=== PATIENT | female | born 2000 | race Asian ===

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

== ENCOUNTER 2020-04-30 10:53 | Outpatient (CLI) | payer MEDICAID ==
[2020-04-30 11:12] VITALS: BP 117/78
[2020-04-30] MEDS ORDERED: LACTATED RINGERS 1,000 ML IV ONE (12:20)
[2020-04-30 12:23] LABS: BILIRUBIN,URINE NEGATIVE (NEGATIVE); GLUCOSE, URINE (UA) NEGATIVE (NEGATIVE); KETONES,URINE (UA) NEGATIVE (NEGATIVE); LEUKOCYTE ESTERASE, URINE SMALL (NEGATIVE); NITRITE,URINE NEGATIVE (NEGATIVE); OCCULT BLOOD,URINE NEGATIVE (NEGATIVE); PH,URINE 7.5 PH (5.0-7.5); PROTEIN,URINE NEGATIVE (NEGATIVE); UROBILINOGEN,URINE 0.2 (NORMAL) E.U./dL (NORMAL)
--- NOTE | 2020-04-30 12:29 | PROVIDER PROGRESS NOTE ---
- HPI Chief Complaint: Labor Current : Current EDU 09/10/20 Gestation 21 Weeks and 0 Days 1 Para 0 Vital Signs Temperature 37.1 C 04/30/20 11:04 Heart Rate 114 H 04/30/20 11:04 Respiratory Rate 16 04/30/20 11:04 Blood Pressure 117/78 04/30/20 11:04 O2 Saturation 100 04/30/20 11:04 Temperature 37.1 C 04/30/20 11:04 Heart Rate 114 H 04/30/20 11:04 Respiratory Rate 16 04/30/20 11:04 Blood Pressure 117/78 04/30/20 11:04 O2 Saturation 100 04/30/20 11:04 - Procedures OB Procedure Performed: Other (transvag for cervical length) - Plan Plan: S: 20yo at 21.0 wks presents with lower abdominal pain and cramping since 1800 last night. She reports this as 6/10 and constant, with some cramping rhythms noted. No pain or burning with urination, no increase in frequency or urgency Reports decreased movement over pattern from last three weeks Reports increased white-watery discharge, denies foul odor or itching Denies nausea, headache, dizziness, blurred vision O: Abdomen, soft, gravid, nontender to palpation Lungs clear and equal bilaterally HR regular rate and rhythm, no murmur noted FHTs reported as 140-150 per bedside doppler TOCO shows uterine activity, mild, intermittent and irregular- possibly uterine irritability Awaiting transvag ultrasound UA collected-pending Affirm collected-pending A: 20yo at 21.0wks gestation with threatened labor P: Await results of UA, affirm, and transvag US to direct plan of care Start IV and admin 1 liter LR Continuous uterine monitoring
[2020-04-30 12:33] LABS: BACTERIA,URINE Few /HPF (None Seen); CLARITY,URINE CLEAR (CLEAR); RBC,URINE None Seen /HPF (0-5); SQUAMOUS EPITHELIAL CELL,UR MANY Squamous (<= Few)
[2020-04-30 14:17] LABS: BASOPHILS % (AUTO) 0.6 %; EOSINOPHILS # (AUTO) 0.1 10^3/uL (0.0-0.7); EOSINOPHILS % (AUTO) 0.7 %; HGB - HEMOGLOBIN 11.4 g/dL (12.0-16.0); LYMPHOCYTES # (AUTO) 1.4 10^3/uL (1.5-3.5); LYMPHOCYTES % (AUTO) 19.4 %; MEAN CORPUSCULAR HGB CONC 32.8 g/dL (32.0-36.0); MEAN CORPUSCULAR VOLUME 88.5 fL (81.0-99.0); MEAN PLATELET VOLUME 12.1 fL (7.9-10.8); MONOCYTES # (AUTO) 0.6 10^3/uL (0.0-1.0); MONOCYTES % (AUTO) 7.6 %; NEUTROPHILS # (AUTO) 5.1 10^3/uL (1.5-6.6); NEUTROPHILS % (AUTO) 70.7 %; PLT - PLATELET COUNT 139 10^3/uL (130-450); RED BLOOD COUNT 3.93 10^6/uL (4.20-5.40); RED CELL DISTRIBUTION WIDTH 12.5 % (12.0-15.0); WHITE BLOOD COUNT 7.2 x10^3/uL (4.8-10.8)
--- NOTE | 2020-04-30 15:23 | Ultrasound Report ---
PROCEDURE: Abdomen Limited INDICATIONS: RLQ abdominal pain TECHNIQUE: Real-time focused scanning was performed of the abdomen, with image documentation. COMPARISON: None FINDINGS: The appendix is visualized and measures 2 mm x 2 mm x 2.6 mm at the origin, mid and distal portions respectively. Wall thickness measures 0.5 mm x 0.6 mm x 0.6 mm at the origin, mid and dista l portions respectively. There is no echogenic fat or mural hyperemia. Compressibility is difficult t o assess, as appendix is not well seen in all views.. No appendicolith, free fluid or associated mark opathy. IMPRESSION: Partial visualization of the appendix without gross enlargement or secondary signs of inflammation. Reviewed by: Shannan Malin MD on 04/30/2020 3:19 PM PST Approved by: Shannan Malin MD on 04/30/2020 3:19 PM PST Station ID: [id number]
--- NOTE | 2020-04-30 15:26 | Ultrasound Report ---
PROCEDURE: OB Limited INDICATIONS: contractions OUTSIDE/PRIOR DATING DATA: Last menstrual period (LMP): Unknown. LMP-based estimated date of delivery (NIKKO): Unknown. First dating scan (date and location): 02/19/2020, [id number]. Estimated date of delivery (NIKKO) from first dating scan: 09/10/2020. TECHNIQUE: Real-time scanning was performed of the fetus, with image documentation. Endovaginal scanning: COMPARISON: None. FINDINGS: A single living intrauterine gestation is present. Presentation: Breech Placenta: Placental position is anterior, without previa. The placenta is low lying but is approxima tely 2 cm from the internal os. Amniotic fluid index: 13.6 cm. Largest pocket is 3.6 cm. heart rate: 140 beats per minutes. Maternal cervical canal: 5 cm long; normal length is 2.5 cm or more. Estimated gestational age by initial ultrasound: 21 weeks 0 days. IMPRESSION: Live intrauterine with an estimated gestational age of 21 weeks 0 days by init ial ultrasound without complication. Reviewed by: Diego Montes on 04/30/2020 3:25 PM PST Approved by: Diego Montes on 04/30/2020 3:25 PM PST Station ID: [id number]
[2020-04-30 16:03] LABS: ALBUMIN/GLOBULIN RATIO 0.9 (1.0-2.2); BILIRUBIN,TOTAL 0.5 mg/dL (0.2-1.0); CALCIUM 8.6 mg/dL (8.5-10.3); CREATININE 0.4 mg/dL (0.4-1.0); TOTAL PROTEIN 6.4 g/dL (6.7-8.2)
[2020-04-30 22:30] LABS: CANDIDA GROUP DNA NEGATIVE (NEGATIVE); CANDIDA KRUSEI DNA NEGATIVE (NEGATIVE); TRICHOMONAS VAGINALIS DNA NEGATIVE (NEGATIVE)
== END 2020-04-30 15:30 | disposition home or self-care (01) ==
LOC: WFO 10:53 → MERGE 10:53 → FBP 11:02 → WFO 15:30
PROVIDERS: ATTEND Advanced Practice Midwife
DX: O99.891 Other specified diseases and conditions complicating pregnancy (principal); K59.00 Constipation, unspecified; Z3A.21 21 weeks gestation of pregnancy
CPT/HCPCS: 76705; 76815; 80053; 81001; 85025; 87481; 87661; 87801; 99214; J7120; 87086

== ENCOUNTER 2020-05-04 07:40 | Outpatient (CLI) | payer MEDICAID ==
--- NOTE | 2020-05-04 15:42 | Ultrasound Report ---
PROCEDURE: OB Detailed Eval INDICATIONS: SUPERVISION OF NORMAL PREGANCY OUTSIDE/PRIOR DATING DATA: Last menstrual period (LMP): Unknown. LMP-based estimated date of delivery (NIKKO): Unknown. First dating scan (date and location): 02/19/2020. Estimated date of delivery (NIKKO) from first dating scan: 09/11/2019. TECHNIQUE: Real-time scanning was performed of the fetus, with image documentation and biometric measurements. COMPARISON: OB ultrasound 04/20/2020 FINDINGS: General: A single living intrauterine gestation is present. Presentation: Vertex Placenta: Placental position is anterior, with mild low-lying appearance. Amniotic fluid index: 13.8 cm, 42nd percentile for gestational age. Largest pocket 5.0 cm heart rate: 139 beats per minute. Maternal cervical canal: 4.5 cm long; normal length is 2.5 cm or more. biometrics: Biparietal diameter: 4.9 cm 20 weeks 5 days Head circumference: 19 cm 21 weeks 2 days Abdominal circumference: 17.3 cm 20 weeks 1 day Femur length: 3.6 cm 21 weeks 3 days Estimated gestational age from initial scan: 21 weeks 4 days Composite gestational age from present scan: 21 weeks 3 days Estimated weight and percentile: 446 g 53rd percentile Measurement variability in biometric dating: +/- 10 days from 12-20 weeks gestation, +/- 2 weeks from 20-30 weeks gestation, +/- 3 weeks at 30 weeks gestation or later. Anatomic survey: Neuro: Ventricles are normal at less than 10 mm. Cisterna magna is normal at 3-11 mm. Cerebellum i s normal in size and morphology. Nuchal skin fold: Normal at less than 6 mm between 14 and 20 weeks gestational age. Face: Nose and lips, facial profile are normal. Spine: No evidence for spina bifida. Heart: 4-chambered heart is present, with normal ventricular outflow tracts. Diaphragm: Diaphragm is intact. Stomach: Left-sided stomach is present. Kidneys: No hydronephrosis. Normal is less than 5 mm in 2nd trimester, less than 7 mm in 3rd trimester. Cord: 3 vessel cord has orthotopic insertion. Bladder: Normal in size. Extremities: All 4 extremities are visualized. IMPRESSION: 1. Single live intrauterine with ultrasound gestational age today of 21 weeks 3 days compar ed to 21 weeks 4 days from initial ultrasound. Ultrasound NIKKO is unchanged at 09/11/2019. 2. Anatomy is within normal limits. Reviewed by: Shannan Malin MD on 05/04/2020 3:40 PM PST Approved by: Shannan Malin MD on 05/04/2020 3:40 PM PST Station ID: [id number]
== END 2020-05-04 07:41 | disposition home or self-care (01) ==
LOC: DI 07:40
PROVIDERS: ATTEND Advanced Practice Midwife
DX: Z34.90 Encounter for supervision of normal pregnancy, unspecified, unspecified trimester (principal); Z36.89 Encounter for other specified antenatal screening
CPT/HCPCS: 76811

== ENCOUNTER 2020-05-25 11:34 | Outpatient (CLI) | payer MEDICAID | END 2020-05-25 11:35 | disposition home or self-care (01) | LOC: LAB 11:34 | PROVIDERS: ATTEND Nurse Practitioner Obstetrics & Gynecology | DX: O99.891 Other specified diseases and conditions complicating pregnancy (principal); R19.7 Diarrhea, unspecified; J45.909 Unspecified asthma, uncomplicated; Z20.828 Contact with and (suspected) exposure to other viral communicable diseases ==

== ENCOUNTER 2020-05-28 15:28 | Outpatient (CLI) | payer MEDICAID ==
[2020-05-28 16:43] LABS: BASOPHILS % (AUTO) 0.3 %; EOSINOPHILS # (AUTO) 0.1 10^3/uL (0.0-0.7); HGB - HEMOGLOBIN 10.4 g/dL (12.0-16.0); LYMPHOCYTES # (AUTO) 1.5 10^3/uL (1.5-3.5); LYMPHOCYTES % (AUTO) 20.6 %; MEAN CORPUSCULAR HEMOGLOBIN 28.6 pg (27.0-31.0); MEAN CORPUSCULAR HGB CONC 31.8 g/dL (32.0-36.0); MEAN CORPUSCULAR VOLUME 89.8 fL (81.0-99.0); MEAN PLATELET VOLUME 10.7 fL (7.9-10.8); MONOCYTES # (AUTO) 0.6 10^3/uL (0.0-1.0); MONOCYTES % (AUTO) 8.6 %; NEUTROPHILS % (AUTO) 68.3 %; PLT - PLATELET COUNT 150 10^3/uL (130-450); RED BLOOD COUNT 3.64 10^6/uL (4.20-5.40); RED CELL DISTRIBUTION WIDTH 12.5 % (12.0-15.0); WHITE BLOOD COUNT 7.3 x10^3/uL (4.8-10.8)
== END 2020-05-28 15:29 | disposition home or self-care (01) ==
LOC: LAB 15:28
PROVIDERS: ATTEND Advanced Practice Midwife
DX: Z36.89 Encounter for other specified antenatal screening (principal)
CPT/HCPCS: 36415; 82950; 85025

== ENCOUNTER 2020-06-16 07:01 | Outpatient (CLI) | payer MEDICAID | END 2020-06-16 07:02 | disposition home or self-care (01) | LOC: LAB 07:01 | PROVIDERS: ATTEND Nurse Practitioner Obstetrics & Gynecology | DX: O99.810 Abnormal glucose complicating pregnancy (principal) | CPT/HCPCS: 36415; 82951; 82952 ==

== ENCOUNTER 2020-06-21 08:00 | Outpatient (CLI) | payer MEDICAID ==
[2020-06-21 19:52] LABS: BACTERIAL VAGINOSIS DNA NEGATIVE (NEGATIVE); CANDIDA GLABRATA DNA NEGATIVE (NEGATIVE); CANDIDA GROUP DNA NEGATIVE (NEGATIVE); CANDIDA KRUSEI DNA NEGATIVE (NEGATIVE); TRICHOMONAS VAGINALIS DNA NEGATIVE (NEGATIVE)
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
== END 2020-06-21 23:59 ==
LOC: LAB.R 08:00
PROVIDERS: ATTEND Advanced Practice Midwife
DX: O23.599 Infection of other part of genital tract in pregnancy, unspecified trimester (principal); Z3A.00 Weeks of gestation of pregnancy not specified
CPT/HCPCS: 87661; 87801

== ENCOUNTER 2020-06-24 15:22 | Outpatient (CLI) | payer MEDICAID ==
--- NOTE | 2020-06-25 16:57 | Ultrasound Report ---
PROCEDURE: OB F/U or Repeat INDICATIONS: SUPERVISION OF NORMAL OUTSIDE/PRIOR DATING DATA: Last menstrual period (LMP): Not available. LMP-based estimated date of delivery (NIKKO): Not available. First dating scan (date and location): 02/19/2020. Estimated date of delivery (NIKKO) from first dating scan: 09/10/2020. TECHNIQUE: Real-time scanning was performed of the fetus, with image documentation and biometric measurements. Endovaginal scanning: Not needed COMPARISON: Prior OB ultrasound studies for this . FINDINGS: General: A single living intrauterine gestation is present. Presentation: Transverse head to the maternal left. Placenta: Placental position is anterior, without previa. Amniotic fluid index: 13.2 cm, normal for gestational age. heart rate: 155 beats per minute. Maternal cervical canal: 5.1 cm long; normal length is 2.5 cm or more. Other: Not applicable. IMPRESSION: Limited evaluation at clinician request to most accurately assess low-lying placental ap pearance. The placental tip is now 2.7 cm above the internal os of the cervical canal, normal in posi tioning. Viable intrauterine gestation with normal amniotic fluid volume is noted, and the delivery d ate is projected to be centered on 09/10/2020. Reviewed by: Alden Reilly MD on 06/25/2020 4:56 PM PST Approved by: Alden Reilly MD on 06/25/2020 4:56 PM PST Station ID: [id number]
== END 2020-06-24 15:23 | disposition home or self-care (01) ==
LOC: DI 15:22
PROVIDERS: ATTEND Advanced Practice Midwife
DX: Z34.92 Encounter for supervision of normal pregnancy, unspecified, second trimester (principal)

== ENCOUNTER 2020-06-30 15:28 | Outpatient (CLI) | payer MEDICAID ==
[2020-06-30 15:40] VITALS: BP 143/83
[2020-06-30 18:46] LABS: BILIRUBIN,URINE NEGATIVE (NEGATIVE); GLUCOSE, URINE (UA) NEGATIVE (NEGATIVE); KETONES,URINE (UA) NEGATIVE (NEGATIVE); LEUKOCYTE ESTERASE, URINE NEGATIVE (NEGATIVE); NITRITE,URINE NEGATIVE (NEGATIVE); OCCULT BLOOD,URINE NEGATIVE (NEGATIVE); PROTEIN,URINE NEGATIVE (NEGATIVE); UROBILINOGEN,URINE 0.2 (NORMAL) E.U./dL (NORMAL)
[2020-06-30 18:49] LABS: RUPTURE OF MEMBRANES PLUS NEGATIVE (NEGATIVE)
[2020-06-30 18:55] LABS: CLARITY,URINE CLEAR (CLEAR)
--- NOTE | 2020-06-30 19:04 | PROCEDURE REPORT ---
- HPI Diagnosis/Indication for NST: Other (leaking of fluid) Current EDU 09/10/20 Gestation 29 Weeks and 5 Days 1 Para 0 Vital Signs Temperature 99.1 F 06/30/20 15:39 Heart Rate 121 H 06/30/20 15:39 Respiratory Rate 18 06/30/20 15:39 Blood Pressure 143/83 H 06/30/20 15:39 O2 Saturation 98 06/30/20 15:39 Temperature 99.1 F 06/30/20 15:39 Heart Rate 121 H 06/30/20 15:39 Respiratory Rate 18 06/30/20 15:39 Blood Pressure 143/83 H 06/30/20 15:39 O2 Saturation 98 06/30/20 15:39 - Results and Plan Findings/Impression: Baseline: 145 BPM Variability: Moderate Accelerations: Present 10x10 Decelerations: Absent Trends in FHR over time: no changes [place] contractions in 10 minutes: neg Impression: reactive Category 1 NST S: patient c/o yellow creamy leaking of fluid from the vagina, feels like it is a lot, had eval last week by CNM without infection seen but worried because lots is still coming out. Not soaking through underwear. No VB. Good FM. Some sup rapubic cramping that can last for 30min at a time, is mild and intermittent. O: AVSS, alert NAD, EFG normal, vag pink and moist, opaque creamy yellow discharge present, cervix is closed visually and on SVE. Negative pooling, valsalva, nitrizine and ferning. ROM plus test was neg, wet mount normal, UA norml. A/P: Leukorrhea of . Reassured, PTL precautions given, f/u per routine in clinic.
[2020-06-30 22:12] LABS: TRICHOMONAS VAGINALIS DNA NEGATIVE (NEGATIVE)
== END 2020-06-30 18:43 | disposition home or self-care (01) ==
LOC: WFO 15:28 → FBP 15:29 → WFO 18:43
PROVIDERS: ATTEND Obstetrics & Gynecology
DX: O99.891 Other specified diseases and conditions complicating pregnancy (principal); N89.8 Other specified noninflammatory disorders of vagina; Z3A.29 29 weeks gestation of pregnancy
CPT/HCPCS: 81001; 81003; 84112; 87086; 87210; 87491; 87591; 87661; 99213

== ENCOUNTER 2020-07-09 08:00 | Outpatient (CLI) | payer MEDICAID | END 2020-07-09 23:59 | disposition home or self-care (01) | LOC: LAB.S 08:00 | PROVIDERS: ATTEND Physician Assistant Medical | DX: J34.89 Other specified disorders of nose and nasal sinuses (principal); Z20.822 Contact with and (suspected) exposure to COVID-19 ==

== ENCOUNTER 2020-07-10 19:46 | Outpatient (CLI) | payer MEDICAID ==
[2020-07-10 20:16] VITALS: BP 127/76
[2020-07-10 20:19] LABS: BILIRUBIN,URINE NEGATIVE (NEGATIVE); GLUCOSE, URINE (UA) NEGATIVE (NEGATIVE); KETONES,URINE (UA) NEGATIVE (NEGATIVE); LEUKOCYTE ESTERASE, URINE NEGATIVE (NEGATIVE); NITRITE,URINE NEGATIVE (NEGATIVE); OCCULT BLOOD,URINE NEGATIVE (NEGATIVE); PH,URINE 6.5 PH (5.0-7.5); PROTEIN,URINE NEGATIVE (NEGATIVE); UROBILINOGEN,URINE 0.2 (NORMAL) E.U./dL (NORMAL)
[2020-07-10 20:22] LABS: CLARITY,URINE CLEAR (CLEAR)
[2020-07-10 20:33] LABS: BACTERIA,URINE None Seen /HPF (None Seen); RBC,URINE 0-5 /HPF (0-5); SQUAMOUS EPITHELIAL CELL,UR FEW Squamous (<= Few)
[2020-07-10] MEDS ORDERED: SUCRALFATE 1 GM/10 ML UDC PO SCH (20:59)
--- NOTE | 2020-07-11 00:57 | PROVIDER PROGRESS NOTE ---
- HPI Chief Complaint: Labor (vs. round ligament pain) Current : Current EDU 09/10/20 Gestation 31 Weeks and 1 Days 1 Para 0 Vital Signs Heart Rate 115 H 07/10/20 20:15 Respiratory Rate 07/10/20 20:15 Blood Pressure 127/76 07/10/20 20:15 Temperature 97.3 C H 07/10/20 20:39 Heart Rate 115 H 07/10/20 20:15 Respiratory Rate 07/10/20 20:15 Blood Pressure 127/76 07/10/20 20:15 O2 Saturation - Procedures OB Procedure Performed: NST NST Procedure: NST Procedure Start Date 07/10/20 Start Time 20:03 Stop Time 21:16 Vibroacoustic Stimulation Used No Patient States Movement Yes - Plan Plan: S: Sidra presents for labor check. She reports cramping all day, but prolonged pain with lower pelvic discomfort noted for two hours prior to presenting. Right side worse than left. Denies VB or LOF Reports FM O: No contractions on monitor NST perform date 07/10/2020 NST read date 07/10/2020 FFN- neg UA- neg A: 20yo at 31.1 wks gestation presents for rule out labor FHT Cat I No uterine activity FFN reassuring P: Discharge to home with PTL precautions Continue with routine care Encouraged use of support belt and proper body mechanics Final Diagnosis: False Labor
== END 2020-07-10 21:30 | disposition home or self-care (01) ==
LOC: WFO 19:46 → FBP 19:47 → WFO 21:30
PROVIDERS: ATTEND Advanced Practice Midwife
DX: O47.03 False labor before 37 completed weeks of gestation, third trimester (principal); Z3A.31 31 weeks gestation of pregnancy
CPT/HCPCS: 59025; 81001; 82731; A9270; 87086

== ENCOUNTER 2020-07-13 15:36 | Outpatient (CLI) | payer MEDICAID ==
[2020-07-13 17:03] LABS: BILIRUBIN,URINE NEGATIVE (NEGATIVE); GLUCOSE, URINE (UA) NEGATIVE (NEGATIVE); KETONES,URINE (UA) NEGATIVE (NEGATIVE); LEUKOCYTE ESTERASE, URINE NEGATIVE (NEGATIVE); NITRITE,URINE NEGATIVE (NEGATIVE); OCCULT BLOOD,URINE NEGATIVE (NEGATIVE); PROTEIN,URINE NEGATIVE (NEGATIVE); UROBILINOGEN,URINE 0.2 (NORMAL) E.U./dL (NORMAL)
[2020-07-13 17:03] LABS: RUPTURE OF MEMBRANES PLUS NEGATIVE (NEGATIVE)
[2020-07-13 17:06] LABS: CLARITY,URINE CLEAR (CLEAR)
[2020-07-13 17:32] LABS: BACTERIA,URINE None Seen /HPF (None Seen); RBC,URINE None Seen /HPF (0-5); SQUAMOUS EPITHELIAL CELL,UR FEW Squamous (<= Few)
[2020-07-13 17:38] LABS: BASOPHILS % (AUTO) 0.4 %; EOSINOPHILS # (AUTO) 0.1 10^3/uL (0.0-0.7); EOSINOPHILS % (AUTO) 1.6 %; LYMPHOCYTES # (AUTO) 1.7 10^3/uL (1.5-3.5); LYMPHOCYTES % (AUTO) 23.2 %; MEAN CORPUSCULAR HEMOGLOBIN 29.1 pg (27.0-31.0); MEAN CORPUSCULAR HGB CONC 32.2 g/dL (32.0-36.0); MEAN CORPUSCULAR VOLUME 90.5 fL (81.0-99.0); MEAN PLATELET VOLUME 11.7 fL (7.9-10.8); MONOCYTES # (AUTO) 0.7 10^3/uL (0.0-1.0); MONOCYTES % (AUTO) 9.2 %; NEUTROPHILS # (AUTO) 4.7 10^3/uL (1.5-6.6); NEUTROPHILS % (AUTO) 63.8 %; PLT - PLATELET COUNT 154 10^3/uL (130-450); RED BLOOD COUNT 3.78 10^6/uL (4.20-5.40); WHITE BLOOD COUNT 7.4 x10^3/uL (4.8-10.8)
[2020-07-13 17:50] LABS: ALBUMIN 3.1 g/dL (3.2-5.5); ALBUMIN/GLOBULIN RATIO 0.9 (1.0-2.2); BILIRUBIN,TOTAL 0.4 mg/dL (0.2-1.0); CALCIUM 9.3 mg/dL (8.5-10.3); CREATININE 0.4 mg/dL (0.4-1.0); TOTAL PROTEIN 6.4 g/dL (6.7-8.2)
[2020-07-13 18:02] LABS: C. PNEUMONIAE- RESP PCR PANEL NOT DETECTED
--- NOTE | 2020-07-13 18:48 | PROVIDER PROGRESS NOTE ---
- HPI Chief Complaint: Decreased movement Current : Current EDU 09/10/20 Gestation 31 Weeks and 4 Days 1 Para 0 Vital Signs Temperature 37.1 C 07/13/20 15:42 Heart Rate 119 H 07/13/20 15:42 Respiratory Rate 24 07/13/20 15:42 Blood Pressure 134/69 H 07/13/20 15:42 O2 Saturation 100 07/13/20 15:42 Temperature 37.1 C 07/13/20 15:50 Heart Rate 119 H 07/13/20 15:50 Respiratory Rate 24 07/13/20 15:50 Blood Pressure 134/69 H 07/13/20 15:50 O2 Saturation 100 07/13/20 15:50 - Procedures OB Procedure Performed: NST Diagnosis/Indication for NST: Decreased movement NST Procedure: NST Procedure Start Date 07/13/20 Start Time 15:48 Stop Time 16:48 Vibroacoustic Stimulation Used No Patient States Movement No: Decreased movement Service Date of procedure: 07/13/20 - Plan Plan: S: Sidra is a 20yo @ 31.4wks gestation who presents to [facility] with c/o decreased movement. She also reports persistent yellow vaginal discharge x 5 days. She denies foul odor, itching or burning. She had a neg AFFIRM 3 weeks ago and states her symptoms have not changed since that time. She denies vaginal bleeding. She denies recent intercourse and states she has not been sexually active since February. She reports cramping accompanied by change of breathing pattern which seems to have been persistent since Sunday morning. She states she has tried to ignore the sensation because she was told it was round ligament pain however she had a difficult time getting through her work day today because she generally did not feel well and then when she noted decreased movement she felt it was important for her to present for evaluation. She states she does her best to consume approximately 100oz of water per day. She does report some congestion but denies body aches or chills and denies feeling febrile. O: BP 134/69, HR 119, T 37.1, O2 100% on RA Normocephalic, atraumatic. Heart RRR w/o M/G/R, lungs CTAB. Abdomen gravid, soft, and nontender. During cramping and change of breathing pattern sensation, abdomen palpates mild and patient talks through episodes without difficulty. Bilateral LE's no edema. NST perform date 07/13/2020 NST read date 07/13/2020 FHR baseline 150s, moderate variability. Initially there were no accels despite vibroacoustic stimulation. A STAT BPP and MARY was ordered. During the time patient waiting arrival of diagnostic imaging to perform the ultrasound, there were heart rate accelerations noted. Mild uterine irritability noted via tocometry. Abdomen palpate mild with soft resting tone. CBC WNL WBC 7.4 Hgb 11.0 Hct 34.2 PLT 154 CMP WNL creatinie 0.4 AST 21 ALT 20 FFN- neg UA- neg ROM+ - negative Respiratory PCR - negative Ultrasound: BPP 8/8 Anterior placenta, no previa. MARY 11.7cm (WNL). Umbilical doppler - WNL Transvaginal cervical length 3.6cm and closed. 1 Liter of LR administered over an hour. Pt reports feeling slightly improve with no increase in uterine activity/contractions. Pt appreciates +FM. A: 20yo at 31.4 wks gestation Decreased movement - NST reactive, BPP General malaise No uterine activity FFN reassuring P: Discharge to home with precautions Continue with routine care Encouraged increased fluid intake and rest. Pt verbalized understanding and agrees to above plan. She denies further questions or concerns at this time. FINAL DIAGNOSIS: Decreased movement False labor Vaginal discharge
[2020-07-13] MEDS ORDERED: LACTATED RINGERS 1,000 ML IV STA ×2 (20:08→20:11)
[2020-07-13 21:11] LABS: CANDIDA GROUP DNA INDETERMINATE ERROR (NEGATIVE); CANDIDA KRUSEI DNA INDETERMINATE ERROR (NEGATIVE); TRICHOMONAS VAGINALIS DNA INDETERMINATE ERROR (NEGATIVE)
--- NOTE | 2020-07-13 21:29 | Ultrasound Report ---
PROCEDURE: OB Biophysical Profile INDICATIONS: Abdominal cramping/decreased movement OUTSIDE/PRIOR DATING DATA: Last menstrual period (LMP): Not evident. LMP-based estimated date of delivery (NIKKO): Not available. First dating scan (date and location): 02/19/2020. Estimated date of delivery (NIKKO) from first dating scan: 09/10/2020. TECHNIQUE: Real-time scanning was performed of the fetus, with image documentation and biometric robinson surements. Biophysical profile was also obtained. Endovaginal scanning: Performed. COMPARISON: OB ultrasound, 06/24/2020, 05/06/2020 and 02/19/2020. FINDINGS: General: A single living intrauterine gestation is present. Presentation: Cephalic Placenta: Placental position is anterior, without previa. Amniotic fluid index: 11.7 cm, 21.9% for gestational age. Largest pocket 4.9 cm. heart rate: 147 beats per minute. Maternal cervical canal: 3.6 cm long and closed; normal length is 2.5 cm or more. Biophysical profile: Tone: 2 points. Movement: 2 points. Respiration: 2 points. Largest pocket of fluid: 2 points. Umbilical artery Doppler: Normal cord Doppler with preserved diastolic flow IMPRESSION: 1. A single living intrauterine gestation 2. Normal biophysical profile. 3. Normal cord Doppler with preserved diastolic flow. Reviewed by: Gamaliel Chase MD on 07/13/2020 9:28 PM PST Approved by: Gamaliel Chase MD on 07/13/2020 9:28 PM PST Station ID: [id number]
[2020-07-13 21:54] LABS: TRICHOMONAS VAGINALIS DNA NEGATIVE (NEGATIVE)
[2020-07-13 23:06] VITALS: BP 123/73
== END 2020-07-13 22:35 | disposition home or self-care (01) ==
LOC: WFO 15:36 → FBP 15:42 → WFO 22:35
PROVIDERS: ATTEND Nurse Practitioner Obstetrics & Gynecology
DX: O36.8130 Decreased fetal movements, third trimester, not applicable or unspecified (principal); O47.03 False labor before 37 completed weeks of gestation, third trimester; O99.891 Other specified diseases and conditions complicating pregnancy; N89.8 Other specified noninflammatory disorders of vagina; O26.813 Pregnancy related exhaustion and fatigue, third trimester; Z3A.31 31 weeks gestation of pregnancy; Z20.822 Contact with and (suspected) exposure to COVID-19
CPT/HCPCS: 0202U; 36415; 59025; 76817; 76819; 80053; 81001; 82731; 84112; 85025; 87481; 87491; 87591; 87661; 87801; 96360; 96361; 99214; J7120; 81599; 87086

== ENCOUNTER 2020-07-15 08:00 | Outpatient (CLI) | payer MEDICAID ==
[2020-07-16 14:04] LABS: BILIRUBIN,URINE NEGATIVE (NEGATIVE); GLUCOSE, URINE (UA) NEGATIVE (NEGATIVE); KETONES,URINE (UA) NEGATIVE (NEGATIVE); LEUKOCYTE ESTERASE, URINE NEGATIVE (NEGATIVE); NITRITE,URINE NEGATIVE (NEGATIVE); OCCULT BLOOD,URINE NEGATIVE (NEGATIVE); PH,URINE 6.5 PH (5.0-7.5); PROTEIN,URINE NEGATIVE (NEGATIVE); UROBILINOGEN,URINE 0.2 (NORMAL) E.U./dL (NORMAL)
[2020-07-16 14:17] LABS: BACTERIA,URINE None Seen /HPF (None Seen); CLARITY,URINE CLEAR (CLEAR); RBC,URINE None Seen /HPF (0-5); SQUAMOUS EPITHELIAL CELL,UR RARE Squamous (<= Few)
[2020-07-16 21:42] LABS: CANDIDA GROUP DNA NEGATIVE (NEGATIVE); CANDIDA KRUSEI DNA NEGATIVE (NEGATIVE); TRICHOMONAS VAGINALIS DNA NEGATIVE (NEGATIVE)
== END 2020-07-15 23:59 | disposition home or self-care (01) ==
LOC: LAB.R 08:00
PROVIDERS: ATTEND Advanced Practice Midwife
DX: N76.0 Acute vaginitis (principal); R30.0 Dysuria
CPT/HCPCS: 81001; 87086; 87661; 87801

== ENCOUNTER 2020-07-22 20:06 | Outpatient (CLI) | payer MEDICAID ==
[2020-07-22 21:44] VITALS: BP 114/61
--- NOTE | 2020-07-23 10:30 | PROVIDER PROGRESS NOTE ---
- HPI Chief Complaint: Decreased movement Current : Current EDU 09/10/20 Gestation 32 Weeks and 6 Days 1 Para 0 Vital Signs Heart Rate 115 H 07/22/20 20:16 Respiratory Rate 16 07/22/20 20:16 Blood Pressure 134/82 H 07/22/20 20:16 O2 Saturation 100 07/22/20 20:16 Temperature 36.8 C 07/22/20 21:20 Heart Rate 112 H 07/22/20 21:20 Respiratory Rate 20 07/22/20 21:20 Blood Pressure 114/61 07/22/20 21:20 O2 Saturation 99 07/22/20 21:20 - Exam Sidra is a 20yo at 32.6wks gestationwho sustained a minor injury to her abdomen when walking in her home and accidentally walking into her crib. She originally called the answering service approx 90min after the event and reported no pain, although the area felt warm to her touch. She reported excellent movement, denied contractions, VB, or LOF She was encouraged to come in for evaluation, or to do kick counts since the injury seemed minor. She opted to do kick counts, then called the service again because she reports had not reached ten movements within two hours. Upon admission to L&D [facility] and NST was performed (as four hours had passed since the incident) and movement was reported as well. NST perform date: 07/22/2020 NST read date: 07/22/2020 Abdomen soft and nontender Reports ongoing right sided round ligament pain- discussed support belt and body mechanics A: 20yo at 32.6wks gestation who presents for decreased movement NST: Reactive movement present P: Continue with routine care Final Diagnosis: Decreased movement - Procedures OB Procedure Performed: NST NST Procedure: NST Procedure Start Date 07/22/20 Start Time 20:15 Stop Time 21:40 Vibroacoustic Stimulation Used No
== END 2020-07-22 21:50 | disposition home or self-care (01) ==
LOC: WFO 20:06 → FBP 20:07 → WFO 21:50
PROVIDERS: ATTEND Advanced Practice Midwife
DX: O36.8130 Decreased fetal movements, third trimester, not applicable or unspecified (principal); Z3A.32 32 weeks gestation of pregnancy
CPT/HCPCS: 59025; 99212

== ENCOUNTER 2020-07-29 06:47 | Outpatient (CLI) | payer MEDICAID ==
[2020-07-29 07:21] LABS: HGB - HEMOGLOBIN 12.1 g/dL (12.0-16.0); MEAN CORPUSCULAR HEMOGLOBIN 29.7 pg (27.0-31.0); MEAN CORPUSCULAR HGB CONC 32.1 g/dL (32.0-36.0); MEAN CORPUSCULAR VOLUME 92.6 fL (81.0-99.0); MEAN PLATELET VOLUME 11.9 fL (7.9-10.8); RED BLOOD COUNT 4.07 10^6/uL (4.20-5.40); RED CELL DISTRIBUTION WIDTH 12.9 % (12.0-15.0); WHITE BLOOD COUNT 6.6 x10^3/uL (4.8-10.8)
[2020-07-29 07:28] LABS: CREATININE,URINE 82.7 mg/dL; PROTEIN/CREATININE RATIO,URINE 0.1 (<=0.2)
[2020-07-29 07:29] LABS: ALBUMIN 3.3 g/dL (3.2-5.5); BILIRUBIN,TOTAL 0.5 mg/dL (0.2-1.0); CALCIUM 8.9 mg/dL (8.5-10.3); CREATININE 0.4 mg/dL (0.4-1.0); TOTAL PROTEIN 6.7 g/dL (6.7-8.2)
== END 2020-07-29 06:48 | disposition home or self-care (01) ==
LOC: LAB 06:47
PROVIDERS: ATTEND Nurse Practitioner Obstetrics & Gynecology
DX: L29.9 Pruritus, unspecified (principal)
CPT/HCPCS: 36415; 80053; 82239; 82570; 84156; 85027

== ENCOUNTER 2020-08-03 08:00 | Outpatient (CLI) | payer MEDICAID ==
[2020-08-03 16:05] LABS: BILIRUBIN,URINE NEGATIVE (NEGATIVE); GLUCOSE, URINE (UA) NEGATIVE (NEGATIVE); KETONES,URINE (UA) NEGATIVE (NEGATIVE); LEUKOCYTE ESTERASE, URINE SMALL (NEGATIVE); NITRITE,URINE NEGATIVE (NEGATIVE); OCCULT BLOOD,URINE NEGATIVE (NEGATIVE); PH,URINE 6.5 PH (5.0-7.5); PROTEIN,URINE NEGATIVE (NEGATIVE); UROBILINOGEN,URINE 0.2 (NORMAL) E.U./dL (NORMAL)
[2020-08-03 16:10] LABS: CLARITY,URINE CLEAR (CLEAR)
[2020-08-03 16:34] LABS: BACTERIA,URINE Rare /HPF (None Seen); RBC,URINE 0-5 /HPF (0-5); SQUAMOUS EPITHELIAL CELL,UR MANY Squamous (<= Few)
== END 2020-08-03 23:59 | disposition home or self-care (01) ==
LOC: LAB.R 08:00
PROVIDERS: ATTEND Advanced Practice Midwife
DX: R30.0 Dysuria (principal)
CPT/HCPCS: 81001; 87086

== ENCOUNTER 2020-08-03 14:29 | Outpatient (CLI) | payer MEDICAID ==
[2020-08-03 14:46] LABS: BILIRUBIN,URINE NEGATIVE (NEGATIVE); GLUCOSE, URINE (UA) NEGATIVE (NEGATIVE); KETONES,URINE (UA) NEGATIVE (NEGATIVE); LEUKOCYTE ESTERASE, URINE NEGATIVE (NEGATIVE); NITRITE,URINE NEGATIVE (NEGATIVE); OCCULT BLOOD,URINE NEGATIVE (NEGATIVE); PROTEIN,URINE NEGATIVE (NEGATIVE); UROBILINOGEN,URINE 0.2 (NORMAL) E.U./dL (NORMAL)
[2020-08-03 14:50] LABS: CLARITY,URINE CLEAR (CLEAR)
[2020-08-03 23:46] LABS: CANDIDA GROUP DNA INDETERMINATE ERROR (NEGATIVE); CANDIDA KRUSEI DNA INDETERMINATE ERROR (NEGATIVE); TRICHOMONAS VAGINALIS DNA INDETERMINATE ERROR (NEGATIVE)
== END 2020-08-03 14:30 | disposition home or self-care (01) ==
LOC: LAB 14:29
PROVIDERS: ATTEND Advanced Practice Midwife
DX: R30.0 Dysuria (principal); N76.0 Acute vaginitis
CPT/HCPCS: 81001; 81003; 87661; 87801

== ENCOUNTER 2020-08-04 07:00 | Outpatient (CLI) | payer MEDICAID ==
[2020-08-04 21:02] LABS: CANDIDA GROUP DNA NEGATIVE (NEGATIVE); CANDIDA KRUSEI DNA NEGATIVE (NEGATIVE); TRICHOMONAS VAGINALIS DNA NEGATIVE (NEGATIVE)
== END 2020-08-04 23:59 | disposition home or self-care (01) ==
LOC: LAB 07:00
PROVIDERS: ATTEND Advanced Practice Midwife
DX: N76.0 Acute vaginitis (principal)
CPT/HCPCS: 87661; 87801

== ENCOUNTER 2020-08-06 08:00 | Outpatient (CLI) | payer MEDICAID | END 2020-08-06 23:59 | disposition home or self-care (01) | LOC: LAB.R 08:00 | PROVIDERS: ATTEND Nurse Practitioner Obstetrics & Gynecology | DX: R30.0 Dysuria (principal) | CPT/HCPCS: 87086 ==

== ENCOUNTER 2020-08-09 08:59 | Outpatient (CLI) | payer MEDICAID ==
[2020-08-09] MEDS ORDERED: ACETAMINOPHEN 500 MG TABLET PO PRN (09:12)
[2020-08-09] MEDS ORDERED: LACTATED RINGERS 500 ML IV ONE (09:12)
[2020-08-09 09:41] LABS: BASOPHILS % (AUTO) 0.5 %; EOSINOPHILS # (AUTO) 0.1 10^3/uL (0.0-0.7); EOSINOPHILS % (AUTO) 1.1 %; HGB - HEMOGLOBIN 11.8 g/dL (12.0-16.0); LYMPHOCYTES # (AUTO) 1.4 10^3/uL (1.5-3.5); LYMPHOCYTES % (AUTO) 21.8 %; MEAN CORPUSCULAR HEMOGLOBIN 29.7 pg (27.0-31.0); MEAN CORPUSCULAR HGB CONC 33.1 g/dL (32.0-36.0); MEAN CORPUSCULAR VOLUME 89.9 fL (81.0-99.0); MEAN PLATELET VOLUME 11.8 fL (7.9-10.8); MONOCYTES # (AUTO) 0.6 10^3/uL (0.0-1.0); NEUTROPHILS # (AUTO) 4.1 10^3/uL (1.5-6.6); NEUTROPHILS % (AUTO) 65.8 %; PLT - PLATELET COUNT 146 10^3/uL (130-450); RED BLOOD COUNT 3.97 10^6/uL (4.20-5.40); RED CELL DISTRIBUTION WIDTH 12.6 % (12.0-15.0); WHITE BLOOD COUNT 6.2 x10^3/uL (4.8-10.8)
[2020-08-09 09:51] LABS: CREATININE 0.4 mg/dL (0.4-1.0); URIC ACID 4.1 mg/dL (2.6-7.2)
[2020-08-09] MEDS: ONDANSETRON 4 MG/2 ML VIAL IVP PRN ×2 (09:53→12:04)
[2020-08-09 10:03] LABS: BILIRUBIN,URINE NEGATIVE (NEGATIVE); GLUCOSE, URINE (UA) NEGATIVE (NEGATIVE); KETONES,URINE (UA) NEGATIVE (NEGATIVE); LEUKOCYTE ESTERASE, URINE TRACE (NEGATIVE); NITRITE,URINE NEGATIVE (NEGATIVE); OCCULT BLOOD,URINE NEGATIVE (NEGATIVE); PROTEIN,URINE NEGATIVE (NEGATIVE); UROBILINOGEN,URINE 0.2 (NORMAL) E.U./dL (NORMAL)
[2020-08-09 10:05] LABS: CREATININE,URINE 22.6 mg/dL; TOTAL PROTEIN,URINE TIMED < 6 mg/dL
[2020-08-09 10:07] LABS: CLARITY,URINE CLEAR (CLEAR)
[2020-08-09 10:16] LABS: RBC,URINE 0-5 /HPF (0-5); SQUAMOUS EPITHELIAL CELL,UR FEW Squamous (<= Few)
[2020-08-09 10:17] LABS: BACTERIA,URINE None Seen /HPF (None Seen)
[2020-08-09 12:12] VITALS: BP 118/71
--- NOTE | 2020-08-09 14:22 | PROVIDER PROGRESS NOTE ---
- HPI Chief Complaint: Headache Current : Current EDU 09/11/20 Gestation 35 Weeks and 2 Days 1 Para 0 Vital Signs Temperature 36.9 C 08/09/20 09:10 Heart Rate 107 H 08/09/20 09:10 Respiratory Rate 18 08/09/20 09:10 Blood Pressure 133/84 H 08/09/20 09:10 O2 Saturation 100 08/09/20 09:10 Temperature 36.9 C 08/09/20 09:10 Heart Rate 107 H 08/09/20 10:32 Respiratory Rate 18 08/09/20 10:32 Blood Pressure 118/71 08/09/20 09:50 O2 Saturation 100 08/09/20 10:32 - Procedures OB Procedure Performed: NST NST Procedure: NST Procedure Start Time 20:15 Stop Time 21:40 - Plan Plan: S: Sidra is a 20yo @ 35.3wks gestation who presents today with c/o frontal headache x 8 hours which was unresolved after taking 500mg tylenol and hydrating. She reports she presented to work and then began to feel nauseous and dizzy so she thought she should come be evaluated. She takes her BP at home and states it has been consistently 130s/70s at home. She also reports increased in swelling in her hands and feet over the past couple of days and then noticed this morning she was experiencing some swelling in her face. She states despite her nausea she was able to eat a little bit this morning. She denies vaginal bleeding or leakage of fluid and she denies contractions. She reports +FM although she states she has to pay more close attention to it now but thinks it is because he is "running out of room in there". She reports continued burning with urination and a change in discharge to white and chunky. She denies foul smelling vaginal discharge or vaginal irritation. She states overall everything just feels irritated in her vulvar area. She states she has been sleeping okay but was woken up this morning by her headache. She is feeling tired. She denies visual disturbances. She denies recent exposures to anyone ill. O: BP 130/80, HR WNL, Afebrile, RR 18 Heart RRR w/o M/G/R, lungs CTAB, abdomen gravis, soft, and nontender. No RUQ tenderness upon palpation. No contractions appreciated upon palpation. movement palpated. Bilateral LE's trace edema. Trace edema to hands bilaterally. No evidence of facial swelling noted. Patient appears tired. SVE deferred NST performed 08/09/2020. NST read 08/09/2020. NST reactive. FHR baseline 130s, moderate variability, + accels, no decels No contractions appreciated via tocometry CMP WNL CBC WNL Urine negative protein, + leukocytes - culture sent AFFIRM collected - pending A/P: 500cc LR fluid bolus IV Zofran 4mg IV Tylenol 500mg PO x once Following this patient states she continues to have a headache. Offered morphine IV and pt declines. Additional zofran Rx administered. IV discontinued. Pt released home with precautions. Encouraged her to continue taking 1000mg PO tylenol q 8 hrs PRN headache. Continues taking BPs at home 2-3 times daily however reassured as BPs have been WNL and her PIH labs are WNL. Encouraged increased fluid intake and rest. Work noted provided to be off of work x 2 days. Pt verbalized understanding and agrees to above plan. She denies further questions or concerns at this time. FINAL DIAGNOSIS: Headache in Dysuria
[2020-08-09 17:32] LABS: CANDIDA GROUP DNA NEGATIVE (NEGATIVE); CANDIDA KRUSEI DNA NEGATIVE (NEGATIVE); TRICHOMONAS VAGINALIS DNA NEGATIVE (NEGATIVE)
== END 2020-08-09 12:35 | disposition home or self-care (01) ==
LOC: WFO 08:59 → FBP 09:02 → WFO 12:35
PROVIDERS: ATTEND Nurse Practitioner Obstetrics & Gynecology
DX: O99.891 Other specified diseases and conditions complicating pregnancy (principal); R51.9 Headache, unspecified; R30.0 Dysuria; Z3A.35 35 weeks gestation of pregnancy
CPT/HCPCS: 81001; 82565; 82570; 84156; 84450; 84460; 84550; 85025; 87086; 87481; 87661; 87801; 96374; 99213; A9270; J7120

== ENCOUNTER 2020-08-11 12:58 | Outpatient (CLI) | payer MEDICAID | END 2020-08-11 12:59 | disposition home or self-care (01) | LOC: LAB.N 12:58 | PROVIDERS: ATTEND Nurse Practitioner Obstetrics & Gynecology | DX: R51.9 Headache, unspecified (principal); Z20.822 Contact with and (suspected) exposure to COVID-19 ==

== ENCOUNTER 2020-08-20 08:00 | Outpatient (CLI) | payer MEDICAID | END 2020-08-20 23:59 | disposition home or self-care (01) | LOC: LAB.R 08:00 | PROVIDERS: ATTEND Nurse Practitioner Obstetrics & Gynecology | DX: Z36.85 Encounter for antenatal screening for Streptococcus B (principal) | CPT/HCPCS: 87797 ==

== ENCOUNTER 2020-08-26 08:44 | Outpatient (CLI) | payer MEDICAID ==
[2020-08-26 08:51] VITALS: BP 132/75
[2020-08-26 09:56] LABS: RUPTURE OF MEMBRANES PLUS NEGATIVE (NEGATIVE)
--- NOTE | 2020-08-26 13:01 | PROVIDER PROGRESS NOTE ---
- HPI Chief Complaint: Leakage of vaginal fluid Current : Current EDU 09/10/20 Gestation 37 Weeks and 6 Days 1 Para 0 Vital Signs Temperature 36.8 C 08/26/20 08:46 Heart Rate 103 H 08/26/20 08:46 Respiratory Rate 20 08/26/20 08:46 Blood Pressure 132/75 H 08/26/20 08:46 O2 Saturation 100 08/26/20 08:46 Temperature 36.8 C 08/26/20 08:51 Heart Rate 103 H 08/26/20 08:51 Respiratory Rate 20 08/26/20 08:51 Blood Pressure 132/75 H 08/26/20 08:51 O2 Saturation 100 08/26/20 08:51 - Procedures OB Procedure Performed: NST NST Procedure: NST Procedure Start Date 08/26/20 Start Time 08:56 Stop Time 09:20 Vibroacoustic Stimulation Used No Patient States Movement Yes Service Date of procedure: 08/26/20 - Plan Plan: S: Sidra is a 20yo @ 37.6wks gestation who presents to [facility] with c/o increased vaginal discharge that she is unsure if her water broke. She denies vaginal bleeding or contractions. She reports +FM. O: FHR baseline 130s, moderate variability, + accels, no decels No contractions via tocometry No obvious leakage of fluid. Nitrizine negative ROM+ -Negative A/P: Reviewed increased vaginal discharge in . Pt released home with precautions. Pt verbalized understanding and agrees to above plan. She denies further questions or concerns at this time. FINAL DIAGNOSIS: Vaginal discharge in
== END 2020-08-26 10:28 | disposition home or self-care (01) ==
LOC: WFO 08:44 → FBP 08:45 → WFO 10:28
PROVIDERS: ATTEND Nurse Practitioner Obstetrics & Gynecology
DX: O99.891 Other specified diseases and conditions complicating pregnancy (principal); N89.8 Other specified noninflammatory disorders of vagina; Z3A.37 37 weeks gestation of pregnancy
CPT/HCPCS: 59025; 84112; 99213

== ENCOUNTER 2020-09-03 07:25 | Inpatient (IN) | payer MEDICAID ==
[2020-09-03] MEDS ORDERED: fentaNYL 100 MCG/2 ML VIAL IVP PRN (08:49)
[2020-09-03] MEDS ORDERED: SODIUM CHLORIDE FLUSH 0.9% 10 ML SYRINGE IVP PRN (08:49)
[2020-09-03] MEDS ORDERED: LIDOCAINE-MPF 1% 30 ML VIAL ID PRN (08:49)
[2020-09-03] MEDS ORDERED: OXYTOCIN/SODIUM CHLORIDE 500 ML IV PRN (08:49)
[2020-09-03] MEDS ORDERED: diphenhydrAMINE 25 MG CAPSULE PO PRN (08:49)
[2020-09-03] MEDS ORDERED: METOCLOPRAMIDE 10 MG/2 ML VIAL IVP PRN ×2 (08:49→17:39)
[2020-09-03] MEDS ORDERED: CARBOPROST TROMETHAMINE 250 MCG/ML AMP IM PRN (08:49)
[2020-09-03] MEDS ORDERED: miSOPROStoL 200 MCG TABLET BC PRN (08:49)
[2020-09-03] MEDS ORDERED: OXYTOCIN 10 UNIT/ML VIAL IM PRN (08:49)
[2020-09-03] MEDS ORDERED: TRANEXAMIC ACID IN NACL 1,000 MG/100 ML BAG IV PRN (08:49)
[2020-09-03 09:03] LABS: BASOPHILS % (AUTO) 0.5 %; EOSINOPHILS # (AUTO) 0.1 10^3/uL (0.0-0.7); EOSINOPHILS % (AUTO) 1.2 %; HCT - HEMATOCRIT 37.8 % (37.0-47.0); HGB - HEMOGLOBIN 12.1 g/dL (12.0-16.0); LYMPHOCYTES # (AUTO) 1.4 10^3/uL (1.5-3.5); LYMPHOCYTES % (AUTO) 22.7 %; MEAN CORPUSCULAR HEMOGLOBIN 29.2 pg (27.0-31.0); MEAN CORPUSCULAR VOLUME 91.1 fL (81.0-99.0); MONOCYTES # (AUTO) 0.6 10^3/uL (0.0-1.0); MONOCYTES % (AUTO) 9.4 %; NEUTROPHILS % (AUTO) 65.5 %; PLT - PLATELET COUNT 109 10^3/uL (130-450); RED BLOOD COUNT 4.15 10^6/uL (4.20-5.40); RED CELL DISTRIBUTION WIDTH 13.1 % (12.0-15.0)
[2020-09-03] MEDS: miSOPROStoL 100 MCG TABLET BC SCH ×3 (09:39→18:16)
--- NOTE | 2020-09-03 10:38 | HISTORY & PHYSICAL EXAMINATION ---
Admit History - Visit Reason Visit Reason: Other (Elective induction of labor with pre-induction cervical ripening) - : 1 Parity: 0 Premature: 0 Ectopic: 0 : 0 Care: positive: Other Risk/History: positive: None Complications This : positive: None Smoking Status: Never smoker - Mother's Labs Mother's Blood Type: positive: A Mother's RH: positive: Positive GBS: positive: Group B Step Negative Rubella Status: positive: Immune (VZV non immune) - Other Maternal History Other Maternal History: -20yo at 39.0 wks gestation who presents to Labor and Delivery for elective pre-induction cervical ripening -Reports movement -Denies ctx/VB/LOF - care with [facility] which has been adequate, after transfer of care at 19.6 wks from [facility] through [place] transfer - Complications *None -Dating Criteria *Initial US at 7.1wks c/w LMP for final NIKKO 09/10/2020 -OB Hx *G1: current -Medications * vitamin-daily *Ferrous Sulfate 325mg daily -Allergies *NKDA -Medical History *Asthma -Surgical History *None -Family History *Non contributory -Social History *Lives with mother and grandmother, alternating. FOB with minimal involvement - Labs, Immunizations, and Findings Initial U/S: at 7.1wks c/w LMP for NIKKO 09/10/2020 A pos/Rubella immune VZV- non-immune Gentic testing: [place] neg (per pt) FAS WNL. Anterior placenta, no previa with "mild low-lying appearance". Will request append to measure distance of placental edge to cervical os. MARY WNL. 3VC. Size c/w dating. 06/24/2020 placenta anterior, without previa. (2.7cm from cervical os) Glucola: 150; 3hr- wnl (93/170/149/122) Flu: 04/22/2020 TDAP: 06/21/2020 GBS @ 37.0wks- neg HSV: denies in self and partner Breast pump Rx : 06/21/2020 MOD: . Wants epidural; ; It's a BOY! no name yet pp contraception: unsure. Condoms? dislikes hormonal options and weary of IUD PAP: 03/03/2020- LSIL (HPV pos, 16/18 neg)(follow up one year per [facility]) -SVE closed/50%/ballotable/posterior/moderate -Vertex by digital exam -EFW by krzysztof 6.5# -FHTs per flowsheet -Assessment *20yo at 39.0wks who presents for elective induction of labor *Hobbs Score 2- requires cervical ripening * Heart Tones- Category I -Plan *Admit to OBS(until active labor, SROM, AROM, epidural, or pitocin) *Cervical ripening with Misoprostol *Monitoring- Continuous *Comfort measures available- position changes, whirlpool tub, fentanyl, and epidural per maternal preference *Diet/Activity- per maternal preference *Anticipate Meds/Allgy - Home Medications Home Medications: Ambulatory Orders Medication Instructions Recorded Confirmed Naproxen 500 mg PO BID PRN #14 tablet 10/01/17 - Allergies Allergies/Adverse Reactions: Allergies Allergy/AdvReac Type Severity Reaction Status Date / Time No Known Drug Allergies Allergy Verified 05/04/20 10:45 Review of Systems - Gastrointestinal Gastrointestinal: reports: Nausea (mild, no vomiting) - All Other Systems All Other Systems: reports: Reviewed and negative Physical - Abdominal Exam Vital Signs: Temp Pulse Resp BP Pulse Ox 37.3 C 99 18 146/69 H 09/03/20 07:34 09/03/20 07:34 09/03/20 07:34 09/03/20 07:34 Contraction Frequency (min/apart): none Uterine Resting Tone: positive: Soft - Monitoring Strip Review: positive: Category I - Presentation Presentation: positive: Vertex - Vaginal Exam Membranes: positive: Membranes intact Dilation (in cm): 0 Effacement (%): 50 Station: positive: Ballotable Cervical Position: positive: Posterior Plan for Labor - Plan For Labor I expect patient to be DC'd or transferred within 96 hours.: Yes
[2020-09-03] MEDS ORDERED: CALCIUM CARBONATE CHEW 500 MG TABLET PO PRN (11:54)
[2020-09-03] MEDS: SUCRALFATE 1 GM/10 ML UDC PO SCH ×2 (13:31→21:00)
[2020-09-03] MEDS ORDERED: ROPIVACAINE 0.2% 200 MG/100 ML BAG EP ONE (16:50)
[2020-09-03] MEDS: LACTATED RINGERS 1,000 ML IV SCH ×2 (16:52→22:49)
[2020-09-03] MEDS ORDERED: ONDANSETRON 4 MG/2 ML VIAL IVP PRN (17:39)
[2020-09-03] MEDS ORDERED: NALOXONE 0.4 MG/ML VIAL IVP PRN (17:39)
[2020-09-03] MEDS ORDERED: ePHEDrine 50 MG/ML VIAL IVP PRN (17:39)
[2020-09-03] MEDS ORDERED: NALBUPHINE 10 MG/ML AMP IVP PRN (17:39)
[2020-09-03] MEDS ORDERED: diphenhydrAMINE INJ 50 MG/ML VIAL IVP PRN (17:39)
--- NOTE | 2020-09-03 17:44 | ANESTHESIA ---
Pre-Anesthesia VS, & Labs - Diagnosis Term labor, IUP - Procedure epidural for Vital Signs: Temp Pulse Resp BP Pulse Ox 37.3 C 99 18 146/69 H 09/03/20 07:34 09/03/20 07:34 09/03/20 07:34 09/03/20 07:34 Height: 5 ft 3 in Weight (kg): 82.554 kg Body Mass Index: 32.2 BMI Classification: Obese - NPO Last Fluid Intake: t/o day Last Food Intake: full lunch - Is Patient ?: Yes - Lab Results Current Lab Results: Laboratory Tests 09/03/20 10:32: Blood Type Recheck A POSITIVE 09/03/20 08:15: Blood Type A POSITIVE, Antibody Screen NEGATIVE 09/03/20 08:15: WBC 6.0, RBC 4.15 L, Hgb 12.1, Hct 37.8, MCV 91.1, MCH 29.2, MCHC 32.0, RDW 13.1, Plt Count 109 L, MPV 13.0 H, Neut # (Auto) 4.0, Lymph # (Auto) 1.4 L, [place] # (Auto) 0.6, Eos # (Auto) 0.1, Baso # (Auto) 0.0, Absolute Nucleated RBC 0.00, Nucleated RBC % 0.0 Lab results reviewed: Yes Fish Bones: 09/03/20 08:15 Home Medications and Allergies Active Medications Acetaminophen (Acetaminophen 325 Mg Tablet) 650 mg PO Q6H PRN PRN Reason: Pain or Fever Calcium Carbonate/Glycine (Calcium Carbonate Chew 500 Mg Tablet) 1,000 mg PO QID PRN PRN Reason: Heartburn Last Admin: 09/03/20 12:15 Dose: 1,000 mg Documented by: Carboprost Tromethamine (Carboprost Tromethamine 250 Mcg/Ml Amp) 250 mcg IM Q15M PRN PRN Reason: Step 4: Hemorrhage protocol Stop: 09/08/20 08:51 Diphenhydramine HCl (Diphenhydramine 25 Mg Capsule) 25 mg PO QPM PRN PRN Reason: Insomnia Diphenhydramine HCl (Diphenhydramine Inj 50 Mg/Ml Vial) 12.5 - 25 mg IVP Q6HR PRN PRN Reason: ITCHING Ephedrine Sulfate (Ephedrine 50 Mg/Ml Vial) 5 mg IVP Q5M PRN PRN Reason: For SBP<100;give until SBP>100 Fentanyl (Fentanyl 100 Mcg/2 Ml Vial) 50 mcg IVP Q1H PRN PRN Reason: PAIN Last Admin: 09/03/20 17:04 Dose: 50 mcg Documented by: Lactated Ringer's (Lr) 1,000 mls @ 100 mls/hr IV .Q10H [facility] Oxytocin/Sodium Chloride (Pitocin/Sodium Chloride) 500 mls @ 999 mls/hr IV PRN PRN; Protocol PRN Reason: POST- HEMORR PREVENTION Stop: 09/08/20 08:51 Tranexamic Acid (Tranexamic 1,000 Mg/100ml-Nacl) 1,000 mg in 100 mls @ 600 mls/hr IV .ONCE PRN PRN Reason: EBL >1200mL and within 3hr Stop: 09/08/20 08:51 Ropivacaine (Naropin 0.2%) 200 mg in 100 mls @ 0 mls/hr EP PRN PRN; Protocol PRN Reason: PAIN Lidocaine HCl (Lidocaine-Mpf 1% 30 Ml Vial) 30 ml ID .ONCE PRN PRN Reason: PERINEAL REPAIR Stop: 09/08/20 08:51 Methylergonovine Maleate (Methylergonovine 0.2 Mg/Ml Vial) 0.2 mg IM .ONCE PRN PRN Reason: Step 2: Hemorrhage protocol Stop: 09/08/20 08:51 Metoclopramide HCl (Metoclopramide 10 Mg/2 Ml Vial) 10 mg IVP Q6H PRN PRN Reason: Nausea / Vomiting Metoclopramide HCl (Metoclopramide 10 Mg/2 Ml Vial) 10 mg IVP Q6HR PRN PRN Reason: Nausea / Vomiting Misoprostol (Misoprostol 200 Mcg Tablet) 800 mcg BC .ONCE PRN PRN Reason: Step 3: Hemorrhage protocol Stop: 09/08/20 08:51 Misoprostol (Misoprostol 100 Mcg Tablet) 50 mcg BC Q4HR [facility] Last Admin: 09/03/20 13:31 Dose: 50 mcg Documented by: Nalbuphine HCl (Nalbuphine 10 Mg/Ml Amp) 2.5 - 5 mg IVP Q4H PRN PRN Reason: ITCHING Naloxone HCl (Naloxone 0.4 Mg/Ml Vial) 0.1 mg IVP Q2M PRN PRN Reason: RR<8 Ondansetron HCl (Ondansetron 4 Mg/2 Ml Vial) 4 mg IVP Q4HR PRN PRN Reason: Nausea / Vomiting Ondansetron HCl (Ondansetron 4 Mg/2 Ml Vial) 4 mg IVP Q6HR PRN PRN Reason: Nausea / Vomiting Oxytocin (Oxytocin 10 Unit/Ml Vial) 10 unit IM .ONCE PRN PRN Reason: Step one: If no IV access Stop: 09/08/20 08:51 Sodium Chloride (Sodium Chloride Flush 0.9% 10 Ml Syringe) 10 ml IVP 0100,0900,1700 FAVIOLA Sodium Chloride (Sodium Chloride Flush 0.9% 10 Ml Syringe) 10 ml IVP PRN PRN PRN Reason: NEEDED PER PROVIDER ORDERS Sucralfate (Sucralfate 1 Gm/10 Ml Udc) 1 gm PO BIDAC FAVIOLA Last Admin: 09/03/20 13:31 Dose: 1 gm Documented by: Allergies/Adverse Reactions: Allergies Allergy/AdvReac Type Severity Reaction Status Date / Time No Known Drug Allergies Allergy Verified 05/04/20 10:45 Anes History & Medical History - Anesthetic History Anesthesia Complications: reports: No previous complications Family history of Anesthesia Complications: Denies Family history of Malignant Hyperthermia: Denies - Medical History Cardiovascular: reports: None Pulmonary: reports: None Endocrine/Autoimmune: reports: None Smoking Status: Never smoker History of Cancer?: No - Surgical History Eyes Ears Nose Throat (EENT): reports: Other Other Past Surgical History: wisdom teeth extraction and jaw surgery - Obstetrical History : 1 Parity: 0 Events: positive: None Complications: positive: None Exam General: Alert, Oriented x3, Cooperative Dental: WNL Mouth Openin Fingerbreadth Neck Mobility: Normal Mallampati classification: II Thyromental Distance: 4-6 cm Respiratory: No respiratory distress Cardiovascular: Regular rate Neurological: Normal speech Mental/Cognitive Status: Alert/Oriented X3, Normal for patient Cognitive Status: Within normal limits Plan Anesthesia Type: Epidural Consent for Procedure(s) Verified and Reviewed: Yes Code Status: Attempt Resuscitation ASA classification: 2-Mild systemic disease Is this case an emergency?: No
[2020-09-03] MEDS ORDERED: ePHEDrine 50 MG/ML VIAL IVP ONE (17:55)
[2020-09-03] MEDS: OXYTOCIN/SODIUM CHLORIDE 500 ML IV SCH (22:24)
[2020-09-03] MEDS: ONDANSETRON 4 MG/2 ML VIAL IVP PRN (22:58)
[2020-09-03] MEDS: ROPIVACAINE 0.2% 200 MG/100 ML BAG EP PRN (23:36)
--- NOTE | 2020-09-03 23:48 | PROVIDER PROGRESS NOTE ---
Labor Progress Note - Uterine Monitoring Contraction Frequency (min/apart): 1-3 Contraction Intensity: positive: Moderate Uterine Resting Tone: positive: Soft - Monitoring Monitor Mode: positive: External ultrasound Heart Rate Baseline: 135 Heart Rate Variability: positive: Moderate (6-25 bmp) (intermittent periods of minimal variability, likely sleep cycles) Accelerations: positive: Present, 15x15 Decelerations: positive: None Strip Review: positive: Category I - Vaginal Exam Dilation (in cm): 3 Effacement (%): 80 Station: -3 Cervical Position: Anterior - Labor Progress Note Labor Progress Note/Additional Text: S: Sidra is asleep in bed, comfortable with her epidural. Her mother is asleep on the couch. Sidra wakes easily and is accepting of SVE. O: Pitocin at 4mU/min Epidural present SVE 3/80/-3/soft/anterior/intact A: 20yo at 39.0 wks S/P Miso ripening x2 doses Modest cervical change Adequate uterine contractions Pitocin augmentation- indicated P: Continuous monitoring Continue Pitocin per protocol Anticipate
[2020-09-04] MEDS: SODIUM CHLORIDE FLUSH 0.9% 10 ML SYRINGE IVP SCH ×5 (07:16→18:20)
[2020-09-04] MEDS: miSOPROStoL 100 MCG TABLET BC SCH ×3 (07:16→07:23)
[2020-09-04] MEDS: ROPIVACAINE 0.2% 200 MG/100 ML BAG EP PRN ×3 (07:18→18:17)
[2020-09-04] MEDS: LACTATED RINGERS 1,000 ML IV SCH ×2 (08:28→16:34)
--- NOTE | 2020-09-04 09:20 | PROVIDER PROGRESS NOTE ---
Labor Progress Note - Uterine Monitoring Uterine Monitoring Mode: positive: External toco Contraction Frequency (min/apart): 1-4 Contraction Intensity: positive: Moderate Uterine Resting Tone: positive: Soft - Monitoring Monitor Mode: positive: External ultrasound Heart Rate Baseline: 130 Heart Rate Variability: positive: Moderate (6-25 bmp) (periods of minimal, lasting up to 30mins. Likely sleep cycles.) Accelerations: positive: Present, 15x15 Decelerations: positive: None Strip Review: positive: Category I - Vaginal Exam Dilation (in cm): 3 Effacement (%): 80 Station: -3 Cervical Position: Anterior - Labor Progress Note Labor Progress Note/Additional Text: S: Sidra is resting in bed on her side. Her mother is very upset and has complaints about the plan of care and nursing staff. After thorough discussion, Sidra and her mother are understanding about the plan of care and feel heard about nursing concerns. They are both in agreement with moving forward with pitocin at this time. Sidra feels some discomfort when her catheter is bumped or moved, and occasionally feels contractions, but reports the epidural is acceptably effective for pain control. We discussed long epidural usage and potential times in labor when a bolus may be helpful. O: SVE 3/80/-3/soft/ant/intact Unable to feel bag of calle for AROM Pitocin at 9mU/min LR at 100mL/hr A: 28yo at 39.1wks gestation present for elective IOL FHT Cat I Pitocin appropriate for increase per protocol Cervical change- none station too high for AROM at this time P: Plan is to increase pitocin up to 20mU/min or as needed to achieve effective contraction pattern If no cervical change is noted by 18-24 hours of pitocin- a "pit break" will be considered Encouraged exaggerated position changing techniques at least q30min to nursing staff, and patient is in agreement Continuous monitoring Clear liquids Anticipate
[2020-09-04 11:11] LABS: BASOPHILS % (AUTO) 0.4 %; EOSINOPHILS % (AUTO) 0.4 %; HCT - HEMATOCRIT 40.6 % (37.0-47.0); HGB - HEMOGLOBIN 13.1 g/dL (12.0-16.0); LYMPHOCYTES # (AUTO) 1.5 10^3/uL (1.5-3.5); LYMPHOCYTES % (AUTO) 18.1 %; MEAN CORPUSCULAR HEMOGLOBIN 29.3 pg (27.0-31.0); MEAN CORPUSCULAR HGB CONC 32.3 g/dL (32.0-36.0); MEAN CORPUSCULAR VOLUME 90.8 fL (81.0-99.0); MEAN PLATELET VOLUME 12.4 fL (7.9-10.8); MONOCYTES # (AUTO) 0.7 10^3/uL (0.0-1.0); MONOCYTES % (AUTO) 8.2 %; NEUTROPHILS # (AUTO) 6.1 10^3/uL (1.5-6.6); NEUTROPHILS % (AUTO) 72.4 %; PLT - PLATELET COUNT 128 10^3/uL (130-450); RED BLOOD COUNT 4.47 10^6/uL (4.20-5.40); RED CELL DISTRIBUTION WIDTH 13.2 % (12.0-15.0); WHITE BLOOD COUNT 8.4 x10^3/uL (4.8-10.8)
[2020-09-04 11:23] LABS: ALBUMIN 2.9 g/dL (3.2-5.5); ALBUMIN/GLOBULIN RATIO 0.9 (1.0-2.2); BILIRUBIN,TOTAL 0.6 mg/dL (0.2-1.0); CALCIUM 8.7 mg/dL (8.5-10.3); CREATININE 0.5 mg/dL (0.4-1.0); POTASSIUM 3.9 mmol/L (3.5-5.0); TOTAL PROTEIN 6.3 g/dL (6.7-8.2)
[2020-09-04 11:34] LABS: CREATININE,URINE 56.2 mg/dL; PROTEIN/CREATININE RATIO,URINE 0.2 (<=0.2)
[2020-09-04] MEDS: ONDANSETRON 4 MG/2 ML VIAL IVP PRN (14:20)
--- NOTE | 2020-09-04 17:22 | PROVIDER PROGRESS NOTE ---
Labor Progress Note - Uterine Monitoring Uterine Monitoring Mode: positive: External toco Contraction Frequency (min/apart): 2-4 Contraction Intensity: positive: Moderate to strong Uterine Resting Tone: positive: Soft - Monitoring Monitor Mode: positive: External ultrasound Heart Rate Baseline: 150 Heart Rate Variability: positive: Moderate (6-25 bmp) (intermittent periods of minimal variability) Accelerations: positive: Present, 15x15 Decelerations: positive: None - Vaginal Exam Dilation (in cm): 9 Effacement (%): 90 Station: 0 Cervical Position: Anterior - Labor Progress Note Labor Progress Note/Additional Text: S: Sidra is currently in a hands and knees position, struggling to breathe through contractions with epidural present. Her mother, Azucena, is very supportive at bedside. She reports the epidural as acceptable for her pain management at this time, as she has had anesthesia return a couple of times to increase/adjust/give additional medications. She is just not getting the full coverage that she had hoped for, but she prefers to keep it in, and continue with breathing and position changes to manage contraction pain. She is feeling intermittent spontaneous urges to push, and is breathing through those as well. O: Afebrile Baby with periods of minimal variability and a temporary baseline change that was intermittently tachycardic. Fluid bolus given. Pitocin at 10mU/min Contractions are strong SVE 9/90/0- bloody show noted Chowdhury patent and draining concentrated urine Some elevated BPs are noted in the 140s. CMP- lft's wnl CBC- wnl P:C urine- 0.2 Possibly pain-related elevation in blood pressure. Preeclampsia is ruled out. A: 20yo at 39.1wks gestation with elective induction of labor- active labor Uterine contractions effective FHT Cat I at this time P: Continuous monitoring RN and CNM continue with bedside coaching and support to help with gap in pain management expectations Clear liquids Anticipate
[2020-09-04] MEDS: METHYLERGONOVINE 0.2 MG/ML VIAL IM PRN ×2 (22:19→22:37)
[2020-09-04] MEDS: OXYTOCIN/SODIUM CHLORIDE 500 ML IV SCH (22:33)
[2020-09-04] MEDS ORDERED: VARICELLA VACCINE LIVE/PF 1,350 UNIT/0.5 ML VIAL SUBQ ONE (23:33)
[2020-09-04] MEDS ORDERED: AMPICILLIN 2 GM in SODIUM CHLORIDE 0.9% MINIBAG 100 ML IV SCH (23:45)
[2020-09-05] MEDS ORDERED: AMPICILLIN 2 GM VIAL IV ONE (00:33)
--- NOTE | 2020-09-05 00:39 | DELIVERY NOTE ---
Delivery Note - Labor Labor: positive: Augmented by oxytocin - Delivery Method Delivery Method: positive: Spontaneous vaginal delivery - Cervical Ripening Method Cervical Ripening Method: positive: Misoprostil - Presentation Presentation: positive: FARIDA - left occiput anterior - Nuchal Cord Nuchal Cord: positive: None - Anesthetic Anesthetic Type: - Amniotic Fluid Description Amniotic Fluid Description: positive: Clear - Laceration Laceration: positive: 1st degree, 2nd degree, Perineal, Periurethral - Suture Suture Type: positive: Vicryl Suture Size: positive: 2-0, 3-0 - Delivery Outcome Delivery Outcome: positive: Livebirth - Boaz: positive: Warmer used sex: positive: Male - Cord Cord: positive: 3 vessels - Placenta Placenta: positive: Intact, Spontaneous - Estimated Blood Loss Estimated Blood Loss (in cc): 800 - Delivery Comments (Free Text/Narrative) Delivery Comments (Free Text/Narrative): Note: Labor: This 20 year old, , @39.0wks gestation by 7.1week Ultrasound, confirmed by LMP, presented on 09/03/2020 for elective induction of labor. Cervix was closed/50%/ballotable and vertex. FHR pattern demonstrated 145 baseline in a Category I pattern. Two doses of miso were given for cervical ripening, then Pitocin was administered for augmentation. Epidural placed upon maternal request with several redoses and PCeA required for adequate coverage . SROM occurred on 09/04/2020@ 0944 and amount and color of fluid were noted to be moderate and clear. She progressed to complete at 2046 and began pushing. : of a 3440 gm male on 09/05/2020 at 2202, following 1.5min sh oulder dystocia in [place]. Maternal coaching, Cyndie, subrapubic pressure, and delivery of the anterior arm were utilized to reduce the shoulder. Thick mec was noted on delivery of head. The was placed on maternal abdomen, stimulated and the cord was quickly double clamped and cut by CNM, and baby was brought to the warmer for resuscitation. Peds and RT were called to the room. Apgars were 2 at one minute, 7 at five minutes, and 9 and ten minutes. Cord gases were obtained and resulted. Cord blood was obtained. Three vessel cord. Pitocin administered via IV for hemostasis. Fundal massage and gentle cord traction applied for active third stage management. Placenta delivered spontaneously and intact at 2217. Significant blood loss was noted. Metherine IM, Misoprostol MO, and TXA IV were utilized for management of blood loss. Hemabate was withheld r/t maternal history of asthma. Manual extraction of blood clots from the uterus was performed with a sterile glove, and one dose of Ampicillin was ordered per UpToDate recommendation. Total blood loss 800mL. Fourth Stage: The perineum, vagina, and cervix were inspected and found to have sustained a second degree perineal laceration which was repaired with a 2-0 vicryl and 3-0 vicryl and a first degree left periurethral laceration that was repaired with a 3-0 vicryl. Both lacerations were repaired in standard fashion under sterile conditions with local lidocaine to assist with maternal pain management. Vaginal and rectal examination following repair was done. Tissues well approximated. initiated. Family bonding well. Both mother and baby are in stable condition. CBC ordered for AM.
[2020-09-05] MEDS: IBUPROFEN 600 MG TABLET PO SCH ×4 (01:04→21:37)
[2020-09-05] MEDS: ACETAMINOPHEN 325 MG TABLET PO PRN ×2 (01:04→08:51)
[2020-09-05] MEDS: SUCRALFATE 1 GM/10 ML UDC PO SCH ×2 (01:22→14:32)
[2020-09-05] MEDS: HYDROCORTISONE 1% CREAM 28 GM TUBE PR PRN ×2 (01:26→21:38)
[2020-09-05] MEDS: WITCH HAZEL/GLYCERIN 1 PAD TOP PRN ×2 (01:30→21:38)
[2020-09-05 07:17] LABS: HGB - HEMOGLOBIN 10.2 g/dL (12.0-16.0); MEAN CORPUSCULAR HEMOGLOBIN 29.8 pg (27.0-31.0); MEAN CORPUSCULAR HGB CONC 32.9 g/dL (32.0-36.0); MEAN CORPUSCULAR VOLUME 90.6 fL (81.0-99.0); MEAN PLATELET VOLUME 12.2 fL (7.9-10.8); RED BLOOD COUNT 3.42 10^6/uL (4.20-5.40); RED CELL DISTRIBUTION WIDTH 13.3 % (12.0-15.0); WHITE BLOOD COUNT 15.2 x10^3/uL (4.8-10.8)
[2020-09-05] MEDS: SODIUM CHLORIDE FLUSH 0.9% 10 ML SYRINGE IVP SCH (08:56)
--- NOTE | 2020-09-05 13:07 | PROVIDER PROGRESS NOTE ---
Subjective - Prog Note Date Prog Note Date: 09/05/20 Prog Note Time: 13:05 - Subjective Pt reports feeling: Improved Subjective: S: Sidra is resting in bed with Tenzin swaddled in her arms. FOB is at the bedside and is polite and supportive. She reports they are still learning to breastfeed, and she is reassured that this is normal. She denies any pain, either with cramping or in her perineum, and only has discomfort on standing before she walks. She is taking PO pain meds and feels these are effective for pain management. She reports her bleeding as light. She denies dizziness, sob, or BOSS. O: Fundus firm; Lochia rubra CBC this AM : Hct 31 (was 37.8 on admit) Hgb 10.2 (12.1 on admit) Pulse at pt's baseline BPs wnl Varicella vaccine given today Excellent maternal and paternal attachment behaviors noted A: 20yo s/p on 09/04/2020, pp day 1 Normal recovery with support P: Continue with routine care Evaluate for discharge home tomorrow Objective - Vital Signs/Intake & Output Vital Signs: Vital Signs x48h Temp Pulse Resp BP Pulse Ox 09/05/20 11:58 36.6 C 101 H 16 126/75 98 09/05/20 08:34 36.6 C 99 18 129/74 100 Intake & Output: Intake & Output 09/02/20 09/03/20 09/04/20 09/05/20 23:59 23:59 23:59 23:59 Intake Total 595 2263.3 550 Output Total 270 2240 450 Balance 325 23.3 100 - Lab Results Fish Bones: 09/05/20 07:10 09/04/20 11:06 Other Labs: Lab Results x24hrs 09/05/20 09/03/20 Range/Units 07:10 11:00 WBC 15.2 H (4.8-10.8) x10^3/uL RBC 3.42 L (4.20-5.40) 10^6/uL Hgb 10.2 L (12.0-16.0) g/dL Hct 31.0 L (37.0-47.0) % MCV 90.6 (81.0-99.0) fL MCH 29.8 (27.0-31.0) pg MCHC 32.9 (32.0-36.0) g/dL RDW 13.3 (12.0-15.0) % Plt Count 136 (130-450) 10^3/uL MPV 12.2 H (7.9-10.8) fL Coronavirus (PCR) NEGATIVE
[2020-09-05] MEDS: ACETAMINOPHEN 500 MG TABLET PO PRN ×2 (15:18→23:35)
[2020-09-06] MEDS: IBUPROFEN 600 MG TABLET PO SCH ×3 (03:44→16:27)
[2020-09-06] MEDS: ACETAMINOPHEN 500 MG TABLET PO PRN ×2 (08:25→16:27)
[2020-09-06] MEDS: DOCUSATE SODIUM 100 MG CAPSULE PO SCH (08:25)
--- NOTE | 2020-09-06 10:11 | PROVIDER PROGRESS NOTE ---
Subjective - Subjective Subjective: PPD#2 S: Bonding well with baby. with some difficulty. Her nipples are sore and cracked and she states she has noted some bleeding bilaterally. Has been supplementing with formula because of this. Bleeding decreased and is light. Reports slight tenderness at perineum with movement but overall denies pain and states she is doing well with oral medications. Partner supportive at the bedside. O: BP 132/72, HR 86, RR 16, T 36.8 Heart RRR w/o M/G/R, lungs CTAB, abdomen soft and nontender with fundus firm at U-2, perineum intact, light lochia rubra, bilateral LE's trace edema. A: 20yo G1>0-->P1 PPD#2 s/p TSVD of viable male . with formula supplementation Cracked nipples bilaterally P: Continue routine pp care and medications. Work with nurse on . Consider nipple shield. Encouraged use of hydrogel nipple pads and lanolin ointment. Pt verbalized understanding and agrees to above plan. She denies further questions or concerns at this time. Objective - Vital Signs/Intake & Output Vital Signs: Vital Signs x48h Temp Pulse Resp BP Pulse Ox 09/06/20 08:30 36.8 C 86 18 132/72 H 100 09/06/20 03:45 36.8 C 79 16 112/55 L 99 Intake & Output: Intake & Output 09/03/20 09/04/20 09/05/20 09/06/20 23:59 23:59 23:59 23:59 Intake Total 595 2263.3 550 Output Total 270 2240 575 Balance 325 23.3 -25 - Lab Results Fish Bones: 09/05/20 07:10 09/04/20 11:06
[2020-09-07] MEDS: ACETAMINOPHEN 500 MG TABLET PO PRN ×2 (02:14→10:42)
[2020-09-07] MEDS: IBUPROFEN 600 MG TABLET PO SCH ×2 (02:15→08:52)
[2020-09-07] MEDS: DOCUSATE SODIUM 100 MG CAPSULE PO SCH (08:52)
[2020-09-07 09:04] VITALS: BP 132/75
--- NOTE | 2020-09-07 09:41 | PROVIDER PROGRESS NOTE ---
Subjective - Subjective Subjective: FINAL PROGRESS NOTE: S: Bonding well with baby. without difficulty. Pain well controlled with oral medications. Bleeding decreased and is light. Excited to be able to go home today. Partner is supportive at the bedside. O: BP 132/75, T 36.8, HR 91, RR 18 Heart RRR w/o M/G/R, lungs CTAB, abdomen soft and nontender with fudus firm at U-2, perineum intact, light lochia rubra, bilateral LEs no edema A: 20yo -->P1 PPD #3 s/p TSVD viable male Breast and bottle feeding 2nd degree laceration - intact P: Reviewed pp self care and warning s/sx and when to present. Encouraged continuation of PNV while . Continue taking ibuprofen and tylenol OTC as need for pain management. F/u visit scheduled 04/11/2021 with Savi Barrios CNM/JAYESH. Follow up sooner PRN. Pt and partner at the bedside verbalized understanding and agrees to above plan. She denies further questions or concerns at this time. Objective - Vital Signs/Intake & Output Vital Signs: Vital Signs x48h Temp Pulse Resp BP Pulse Ox 09/07/20 07:30 36.8 C 91 18 132/75 H 99 09/07/20 02:00 36.5 C 73 16 125/60 100 Intake & Output: Intake & Output 09/04/20 09/05/20 09/06/20 09/07/20 23:59 23:59 23:59 23:59 Intake Total 2263.3 550 Output Total 2240 575 Balance 23.3 -25 - Lab Results Fish Bones: 09/05/20 07:10 09/04/20 11:06
--- NOTE | 2020-09-07 09:42 | Discharge Plan ---
Discharge Plan Problem Reviewed?: Yes Disposition: Home, Self Care Condition: Good Diet: Regular Activity Restrictions: No Restrictions Shower Restrictions: No Driving Restrictions: No Weight Bearing: Full Weight No Smoking: If you smoke, Please STOP! Call for help. Follow-up with: Savi Barrios ARNP [Provider Admit Priv/Credential] -
--- NOTE | 2020-09-07 10:45 | DISCHARGE SUMMARY ---
Physician: JAYESH Bolanos DATE OF ADMISSION: 09/03/2020 DATE OF DISCHARGE: 09/07/2020 DIAGNOSES ON ADMISSION 1. A 20-year-old G1, P0 at 39.0 weeks' gestation. 2. Elective induction of labor with preinduction cervical ripening. 3. Group B Streptococcus negative. DIAGNOSES ON DISCHARGE 1. A 20-year-old G1, P1-0-0-1, status post spontaneous vaginal delivery on 09/05/2020. 2. Normal recovery. BRIEF HISTORY: She is a patient of [facility], who presented on 09/03/2020 for elective induction of labor. Cervix was closed and vertex position. Two doses of 50 mcg buccal misoprostol were given for preinduction cervical ripening. Pitocin was administered for augmentation. Epidural placed per maternal request. Spontaneous rupture of membranes was noted to be a moderate amount of clear fluid. Patient progressed to spontaneously deliver a viable male on 09/05/2020 at 2202. Apgars were 2, 7, and 9 at 1, 5, and 10 minutes respectively. The perineum, vagina, and cervix were inspected and found to have a second-degree perineal and first-degree left periurethral lacerations, which were both repaired in standard fashion under sterile conditions. Patient was noted to have increased rate of bleeding after delivery and was given methergine, misoprostol, and tranexamic acid. EBL 800mcg. Patient remained asymptomatic. Due to manual extraction of blood clots from the uterus, patient was given 1 dose of ampicillin . She has been doing well in her course. She is ambulating and tolerating a regular diet. She is urinating without difficulty, and her lochia is normal. Her pain is well controlled with oral medications. She will be discharged home today on day #3 with instructions to continue taking her vitamin while and to continue taking ibuprofen and Tylenol [id number] as needed for pain management. She intends to follow up with Savi Barrios CNM, at [facility] in 2 days for routine visit or sooner if needed. She has been given precautions to call if she has any worsening fevers, chills, abdominal pain, increased bleeding, or foul-smelling vaginal lochia. TD: 09/07/2020 10:23 jl PAVEL
--- NOTE | 2020-09-07 12:04 | Labor Flowsheet ---
Labor Flowsheet Datetime Report Generated by CPN: 09/07/2020 12:04 Datetime: 09/07/2020 07:09 Pulse: 88 SpO2 (%): 99 Datetime: 09/07/2020 07:08 VITAL SIGNS NBP Sys/Annmarie/Mean (mmHg): 132 : 75 : 89 Datetime: 09/04/2020 23:10 Anesthesia Comments: epidural catheter removed intact. noted disconnection from filter at that time . Datetime: 09/04/2020 23:05 Patient Care Comments: perineal repair complete Datetime: 09/04/2020 22:39 Medication Comments: TXA infused Datetime: 09/04/2020 22:20 Stage of : Datetime: 09/04/2020 22:17 Contraction Comments: placenta delivery Datetime: 09/04/2020 22:01 UTERINE ACTIVITY Monitor Mode: Palpation ASSESSMENT A Monitor Mode: External US FHR Baseline Rate : 190 Datetime: 09/04/2020 22:00 Frequency (min): 1.5-2 Quality: Strong Pattern: Normal: <= 5 Contractions in 10 Minutes Resting Tone (Palpate): Relaxed Variability: Moderate 6-25 bpm Accelerations: 15X15 Decelerations: Variable Category: Category II Datetime: 09/04/2020 21:45 Duration (sec): active pushing Datetime: 09/04/2020 21:29 STAGE 2 Pushing: Coached on Pushing; Urge to Push Pushing Position: Pushing Lithotomy Pushing Progress: Descent with Pushing; Pushing Effectively with Contractions Datetime: 09/04/2020 21:15 Temperature (C): 36.9 LaborFlag: Labor Datetime: 09/04/2020 20:49 Vaginal Exam Comments: active pushing begins with CNM at perineum Datetime: 09/04/2020 20:47 VAGINAL EXAM Dilatation (cm): 10.0 Datetime: 09/04/2020 20:05 MEDICATIONS Pitocin (milliunits): Increased to @ 14 Datetime: 09/04/2020 19:47 Station: 0 Exam by: CNM Datetime: 09/04/2020 19:30 FHR Baseline Changes: No Baseline Change Datetime: 09/04/2020 18:55 Patient Position/Activity: Right Extreme Datetime: 09/04/2020 18:39 Respirations: 26 Datetime: 09/04/2020 17:45 PAIN Pain Scale: 10 Pain Assessment Comments: Pt states epidural not working. Provider @ BS with pt to assist with copi ng Datetime: 09/04/2020 17:28 COMMUNICATION Communication: Provider at Bedside Provider Notified (Name): Creek Datetime: 09/04/2020 17:18 Comments: difficult to monitor FHTs d/t maternal postion. Datetime: 09/04/2020 16:59 Monitor Interventions for FHR: Ultrasound Adjusted Datetime: 09/04/2020 16:12 Actions for Decelerations: IV Bolus Datetime: 09/04/2020 15:43 Communication Comments: Updated provider on SVE, pain control Datetime: 09/04/2020 15:24 Epidural Procedure Other: Redose Datetime: 09/04/2020 14:52 Effacement (%): 90 Datetime: 09/04/2020 14:20 Antiemetics/Antacids: Zofran (mg) @ 4 Datetime: 09/04/2020 14:05 Anesthesia Level Check: T11 Datetime: 09/04/2020 10:47 Hygiene: Underpad Changed Datetime: 09/04/2020 09:44 Membrane Status: Ruptured Membranes Ruptured Date/Time: 09/04/2020 09:44 Membranes Rupture Method: Spontaneous Amniotic Fluid Color: Clear Amniotic Fluid Amount: Small Amniotic Fluid Odor: Normal Membrane Comments: Poss rupture of membranes Datetime: 09/04/2020 09:04 Cervix, Position: Anterior Datetime: 09/04/2020 06:30 Pitocin Checklist: At Least 1 Acceleration of 15 bpm x 15 Seconds in 30 Minutes or Adequate Variabi lity; No More than 5 Uterine Contractions in 10 Minutes for any 20 Minute Interval; Uterus Palpates S oft between Contractions Datetime: 09/04/2020 06:00 Temperature Route: Oral Datetime: 09/04/2020 02:28 ANESTHESIA Anesthesia Plans: Epidural Datetime: 09/04/2020 01:29 Resting Tone IUP (mmHg): relaxed Datetime: 09/03/2020 21:31 Oxygen Method: Room Air Datetime: 09/03/2020 20:00 Pain Presence: None/Denies Pain Relief Measures: Epidural Given Pain Coping: Sleeping Comfort Measures: Family Support Datetime: 09/03/2020 19:43 Notification Reason: Status Update; Status Datetime: 09/03/2020 19:30 Vital Sign Comments: Epidural in place lower extremities little to no movement Monitor Interventions for UA: [place] Adjusted Vaginal Bleeding: None Cervix, Consistency: Soft MATERNAL ASSESSMENT Level of Consciousness: Alert Headache: Denies Nausea/Vomiting: Denies RUQ Epigastric Pain: Denies I/O Interventions: Chowdhury Cath Inserted Datetime: 09/03/2020 17:22 Epidural Procedure: Loading Dose Datetime: 09/03/2020 17:07 PROCEDURE TIME OUT Procedure Verify: Correct Patient Identity; Accurate Procedure Consent Form; Agreement on Procedure to be Done Epidural Positioning: Sitting Datetime: 09/03/2020 17:04 Analgesics/Sedatives: Fentanyl (mcg) @ 50 Datetime: 09/03/2020 16:52 PATIENT CARE IV/Blood Work: IV Bolus Started Datetime: 09/03/2020 16:35 Pain Type: Cramping; Contraction; Pressure Pain Location: Abdomen Datetime: 09/03/2020 16:32 Consults: Anesthesia Datetime: 09/03/2020 15:07 Provider Reviewed Strip: No Datetime: 09/03/2020 13:31 Cervical Ripening Agents: Cytotec @
== END 2020-09-07 11:30 | disposition home or self-care (01) | DRG 806 ==
LOC: WFO 07:25 → FBP 07:28 → WFO 08:48 → UNDOADMOB 08:49 → FBP 08:49 → OBSVTOIN 19:39 → FBP 19:39 → INTOOBSV 19:39
PROVIDERS: ADMIT Advanced Practice Midwife; ATTEND Nurse Practitioner Obstetrics & Gynecology
PROC: 0KQM0ZZ Repair Perineum Muscle, Open Approach (ICD-10-PCS; principal; 2020-09-05)
PROC: 10E0XZZ Delivery of Products of Conception, External Approach (ICD-10-PCS; 2020-09-05)
PROC: 0UQMXZZ Repair Vulva, External Approach (ICD-10-PCS; 2020-09-05)
DX: O66.0 Obstructed labor due to shoulder dystocia (principal); O72.1 Other immediate postpartum hemorrhage; Z37.0 Single live birth; O70.1 Second degree perineal laceration during delivery; O71.82 Other specified trauma to perineum and vulva; O77.0 Labor and delivery complicated by meconium in amniotic fluid; Z3A.39 39 weeks gestation of pregnancy; Z20.822 Contact with and (suspected) exposure to COVID-19; O99.214 Obesity complicating childbirth; E66.9 Obesity, unspecified
CPT/HCPCS: 36415; 80053; 82570; 84156; 85025; 85027; 86850; 86900; 86901; 87635; 96374; A9270; G0378; J2210; J7120

== ENCOUNTER 2020-12-23 14:37 | Outpatient (CLI) | payer MEDICAID | END 2020-12-23 14:38 | disposition home or self-care (01) | LOC: LAB.N 14:37 | PROVIDERS: ATTEND Advanced Practice Midwife | DX: Z32.01 Encounter for pregnancy test, result positive (principal) | CPT/HCPCS: 36415; 84702 ==

== ENCOUNTER 2020-12-30 08:00 | Outpatient (CLI) | payer MEDICAID ==
[2020-12-31 12:01] LABS: MUDS CUTOFF CONCENTRATIONS CUTOFF CONC BELOW:
[2020-12-31 12:30] LABS: BILIRUBIN,URINE NEGATIVE (NEGATIVE); GLUCOSE, URINE (UA) NEGATIVE (NEGATIVE); KETONES,URINE (UA) NEGATIVE (NEGATIVE); LEUKOCYTE ESTERASE, URINE MODERATE (NEGATIVE); NITRITE,URINE NEGATIVE (NEGATIVE); OCCULT BLOOD,URINE NEGATIVE (NEGATIVE); PH,URINE 7.5 PH (5.0-7.5); PROTEIN,URINE NEGATIVE (NEGATIVE); UROBILINOGEN,URINE 0.2 (NORMAL) E.U./dL (NORMAL)
[2020-12-31 12:41] LABS: CLARITY,URINE CLEAR (CLEAR)
[2020-12-31 13:00] LABS: AMPHETAMINE SCREEN,URINE NEGATIVE (NEGATIVE); BARBITURATE SCREEN,UR NEGATIVE (NEGATIVE); BENZODIAZEPINES SCREEN, URINE NEGATIVE (NEGATIVE); COCAINE SCREEN URINE NEGATIVE (NEGATIVE); METHADONE SCREEN, URINE NEGATIVE (NEGATIVE); METHAMPHETAMINES SCREEN, URINE NEGATIVE (NEGATIVE); OPIATE SCREEN, URINE NEGATIVE (NEGATIVE); OXYCODONE SCREEN, URINE NEGATIVE (NEGATIVE); PROPOXYPHENE SCREEN, URINE NEGATIVE (NEGATIVE); THC CANNABINOID SCREEN, URINE NEGATIVE (NEGATIVE); TRICYCLIC ANTIDEPRESSANT,URINE NEGATIVE (NEGATIVE)
[2020-12-31 13:51] LABS: RBC,URINE 0-5 /HPF (0-5)
[2020-12-31 13:52] LABS: BACTERIA,URINE Few /HPF (None Seen); SQUAMOUS EPITHELIAL CELL,UR MANY Squamous (<= Few)
== END 2020-12-30 23:59 | disposition home or self-care (01) ==
LOC: LAB.WC 08:00
PROVIDERS: ATTEND Obstetrics & Gynecology
DX: Z32.01 Encounter for pregnancy test, result positive (principal)
CPT/HCPCS: 80306; 81001; 87086

== ENCOUNTER 2021-01-05 08:00 | Outpatient (CLI) | payer MEDICAID ==
[2021-01-05 22:38] LABS: BACTERIAL VAGINOSIS DNA POSITIVE (NEGATIVE); CANDIDA KRUSEI DNA NEGATIVE (NEGATIVE)
[2021-01-05 22:39] LABS: CANDIDA GLABRATA DNA NEGATIVE (NEGATIVE); CANDIDA GROUP DNA NEGATIVE (NEGATIVE); TRICHOMONAS VAGINALIS DNA NEGATIVE (NEGATIVE)
[2021-01-05 23:26] LABS: CHLAMYDIA TRACHOMATIS DNA NEGATIVE (NEGATIVE); NEISSERIA GONORRHOEAE DNA NEGATIVE (NEGATIVE); TRICHOMONAS VAGINALIS DNA NEGATIVE (NEGATIVE)
== END 2021-01-05 23:59 | disposition home or self-care (01) ==
LOC: LAB.N 08:00
PROVIDERS: ATTEND Emergency Medicine
DX: N89.8 Other specified noninflammatory disorders of vagina (principal)
CPT/HCPCS: 87086; 87491; 87591; 87661; 87801

== ENCOUNTER 2021-01-07 13:41 | Outpatient (CLI) | payer MEDICAID ==
[2021-01-07 17:42] LABS: BASOPHILS % (AUTO) 0.6 %; EOSINOPHILS # (AUTO) 0.1 10^3/uL (0.0-0.7); EOSINOPHILS % (AUTO) 2.2 %; HCT - HEMATOCRIT 40.4 % (37.0-47.0); HGB - HEMOGLOBIN 12.6 g/dL (12.0-16.0); LYMPHOCYTES # (AUTO) 1.9 10^3/uL (1.5-3.5); MEAN CORPUSCULAR HEMOGLOBIN 26.6 pg (27.0-31.0); MEAN CORPUSCULAR HGB CONC 31.2 g/dL (32.0-36.0); MEAN CORPUSCULAR VOLUME 85.2 fL (81.0-99.0); MEAN PLATELET VOLUME 11.7 fL (7.9-10.8); MONOCYTES # (AUTO) 0.6 10^3/uL (0.0-1.0); MONOCYTES % (AUTO) 9.8 %; NEUTROPHILS # (AUTO) 3.6 10^3/uL (1.5-6.6); NEUTROPHILS % (AUTO) 57.2 %; PLT - PLATELET COUNT 231 10^3/uL (130-450); RED BLOOD COUNT 4.74 10^6/uL (4.20-5.40); RED CELL DISTRIBUTION WIDTH 14.6 % (12.0-15.0); WHITE BLOOD COUNT 6.3 x10^3/uL (4.8-10.8)
[2021-01-08 10:42] LABS: HEPATITIS B SURFACE ANTIGEN NON-REACTIVE (NON-REACTIVE); HEPATITIS C ANTIBODY NON-REACTIVE (NON-REACTIVE)
[2021-01-08 13:31] LABS: HIV AG/AB 4TH GEN NON-REACTIVE (NON-REACTIVE)
== END 2021-01-07 13:42 | disposition home or self-care (01) ==
LOC: LAB.N 13:41
PROVIDERS: ATTEND Obstetrics & Gynecology
DX: Z36.89 Encounter for other specified antenatal screening (principal)
CPT/HCPCS: 36415; 84702; 85025; 86592; 86762; 86787; 86803; 86850; 86900; 86901; 87340; 87389

== ENCOUNTER 2021-01-07 20:31 | Outpatient (CLI) | payer MEDICAID ==
--- NOTE | 2021-01-08 07:09 | Ultrasound Report ---
PROCEDURE: OB First Trimester w/TV INDICATIONS: POSITIVE TEST OUTSIDE/PRIOR DATING DATA: Last menstrual period (LMP): 11/18/2020. LMP-based estimated date of delivery (NIKKO): 08/25/2021. First dating scan (date and location): This study, 01/07/2021. Estimated date of delivery (NIKKO) from first dating scan: 09/01/2021, +/- 5 days.. The below data below was generated using the above NIKKO of 09/01/2021 TECHNIQUE: Real-time scanning was performed of the fetus and maternal pelvic organs, with image documentation. Endovaginal scanning was also performed to better visualize the fetus and maternal ovaries. COMPARISON: None FINDINGS: There is a single living intrauterine gestation with crown-rump length 5 mm which correlat es with a gestational age of 6 weeks 1 day, +/- 5 days. cardiac activity and yolk sac are seen, with a heart rate 112 bpm. Embryo: 6 weeks 1 day gestational age. Heart rate: 112 bpm. Measurement variability in dating: +/- 4 weeks by LMP, +/- 7 days by mean sac diameter (use before 6 weeks gestation if crown-rump length not able to be measured), +/- 5 days by crown-rump length (6-12 weeks gestation). Maternal organs: Ovaries normal considering gestational status.. Note is made of a finding of subcho rionic hemorrhage (implantation bleed measuring only 5 x 6 x 7 mm in maximal dimension. IMPRESSION: Single living early first trimester gestation with current estimated gestational age of 6 weeks 1 day , +/- 5 days. Follow-up anatomic survey at 20 weeks gestation is recommended. Reviewed by: Alden Reilly MD on 01/08/2021 7:07 AM PDT Approved by: Alden Reilly MD on 01/08/2021 7:07 AM PDT Station ID: [id number]
== END 2021-01-07 20:32 | disposition home or self-care (01) ==
LOC: DI 20:31
PROVIDERS: ATTEND Obstetrics & Gynecology
DX: Z32.01 Encounter for pregnancy test, result positive (principal); Z36.89 Encounter for other specified antenatal screening
CPT/HCPCS: 36415; 84702; 85025; 86592; 86762; 86787; 86803; 86850; 86900; 86901; 87340; 87389

== ENCOUNTER 2021-01-28 16:22 | Outpatient (CLI) | payer MEDICAID ==
[2021-01-28 22:47] LABS: CHLAMYDIA TRACHOMATIS DNA NEGATIVE (NEGATIVE); NEISSERIA GONORRHOEAE DNA NEGATIVE (NEGATIVE); TRICHOMONAS VAGINALIS DNA NEGATIVE (NEGATIVE)
[2021-01-29 13:33] LABS: BACTERIAL VAGINOSIS DNA POSITIVE (NEGATIVE)
[2021-01-29 13:35] LABS: CANDIDA GLABRATA DNA UNRESOLVED (NEGATIVE); CANDIDA GROUP DNA UNRESOLVED (NEGATIVE); CANDIDA KRUSEI DNA UNRESOLVED (NEGATIVE); TRICHOMONAS VAGINALIS DNA UNRESOLVED (NEGATIVE)
== END 2021-01-28 16:23 | disposition home or self-care (01) ==
LOC: LAB 16:22
PROVIDERS: ATTEND Obstetrics & Gynecology
DX: N89.8 Other specified noninflammatory disorders of vagina (principal)
CPT/HCPCS: 87491; 87591; 87661; 87801

== ENCOUNTER 2021-02-10 12:59 | Outpatient (CLI) | payer SELFPAY | END 2021-02-10 13:00 | disposition home or self-care (01) | LOC: LAB 12:59 | PROVIDERS: ATTEND Obstetrics & Gynecology | DX: Z34.81 Encounter for supervision of other normal pregnancy, first trimester (principal) | CPT/HCPCS: 36415 ==

== ENCOUNTER 2021-02-23 11:10 | Emergency (ER) | payer MEDICAID ==
--- NOTE | 2021-02-23 11:45 | ED Physician Documentation ---
History of Present Illness - Stated complaint Stated Complaint: FEMALE - Chief complaint Chief Complaint: Abd Pain - Additonal information Additional information: 21-year-old female who is reportedly 13 weeks presents the emergency department for evaluation of 1 week left lower quadrant abdominal pain and cramping. She states that sometimes she has increased cramping after urination but no nova dysuria, urgency or frequency. She has had an ultrasound confirming IUP. She reports that last week she had brown vaginal discharge but none since. She denies fevers. No diarrhea. She is followed by Dr. White. . LMP 11/19/2020. She does have a 5-month-old in attendance. She reports that she had a vaginal delivery that was complicated by large amount of blood loss as well as shoulder dislocation of her son. Review of Systems Constitutional: denies: Fever Eyes: reports: Reviewed and negative Nose: reports: Reviewed and negative Cardiac: reports: Reviewed and negative Respiratory: reports: Reviewed and negative GI: reports: Abdominal Pain, Nausea, Vomiting. denies: Constipation, Diarrhea, Hematemesis, Bloody / black stool : reports: LMP (11/19/20). denies: Dysuria, Frequency, Hesitancy Skin: reports: Reviewed and negative Musculoskeletal: reports: Reviewed and negative Neurologic: reports: Reviewed and negative PD PAST MEDICAL HISTORY - Past Medical History Cardiovascular: None Respiratory: None Endocrine/Autoimmune: None - Past Surgical History Past Surgical History: Yes HEENT: Other - Present Medications Home Medications: Ambulatory Orders Medication Instructions Recorded Confirmed Pnv No.95/Ferrous Fum/Folic AC 1 tab PO DAILY 02/23/21 02/23/21 [ Tablet] - Allergies Allergies/Adverse Reactions: Allergies Allergy/AdvReac Type Severity Reaction Status Date / Time No Known Drug Allergies Allergy Verified 02/23/21 11:16 - Social History Does the pt smoke?: No Smoking Status: Never smoker Does the pt drink ETOH?: No Does the pt have substance abuse?: No - POLST Patient has POLST: No PD ED PE NORMAL - General General: Alert and oriented X 3, No acute distress - Neck Neck: Supple, no meningeal sign - Cardiac Cardiac: RRR, No murmur - Respiratory Respiratory: Clear bilaterally - Abdomen Abdomen: Normal bowel sounds, Soft. No: Non tender (Focal tenderness left lower quadrant of the abdomen without guarding or rebound.) - Back Back: No CVA TTP, No spinal TTP - Derm Derm: Normal color, Warm and dry - Extremities Extremities: No deformity - Neuro Neuro: Alert and oriented X 3 Eye Opening: Spontaneous Motor: Obeys Commands Verbal: Oriented GCS Score: 15 Results - Vitals Vitals: Vital Signs - 24 hr 02/23/21 11:16 Temperature 36.9 C Heart Rate 100 Respiratory 18 Rate Blood Pressure 139/81 H O2 Saturation 96 Oxygen O2 Source Room air - Labs Labs: Laboratory Tests 02/23/21 02/23/21 02/23/21 11:40 11:41 11:41 WBC 6.7 RBC 4.57 Hgb 12.3 Hct 38.5 MCV 84.2 MCH 26.9 L MCHC 31.9 L RDW 14.2 Plt Count 186 MPV 10.8 Neut # (Auto) 4.3 Lymph # (Auto) 1.7 [place] # (Auto) 0.5 Eos # (Auto) 0.1 Baso # (Auto) 0.0 Absolute Nucleated RBC 0.00 Nucleated RBC % 0.0 Sodium 138 Potassium 4.1 Chloride 106 Carbon Dioxide 23 Anion Gap 9.0 BUN 12 Creatinine 0.5 Estimated GFR (MDRD) 154 Glucose 101 H Calcium 9.1 Total Bilirubin 0.7 AST 19 ALT 18 Alkaline Phosphatase 55 Total Protein 7.6 Albumin 3.8 Globulin 3.8 Albumin/Globulin Ratio 1.0 Lipase 32 Urine Color YELLOW Urine Clarity CLEAR Urine pH 6.0 Ur Specific [place] 1.025 Urine Protein NEGATIVE Urine Glucose (UA) NEGATIVE Urine Ketones NEGATIVE Urine Occult Blood NEGATIVE Urine Nitrite NEGATIVE Urine Bilirubin NEGATIVE Urine Urobilinogen 0.2 (NORMAL) Ur Leukocyte Esterase NEGATIVE Ur Microscopic Review NOT INDICATED Urine Culture Comments NOT INDICATED - Rads (name of study) OB 1st trimester Radiology: See rad report, Other (Per technologist notes 13-week IUP with good heart rate. Ovaries within normal limits. No free fluid.) retroperitoneal US Radiology: See rad report, Other (No hydro seen.) PD MEDICAL DECISION MAKING - ED course Complexity details: d/w patient ED course: This is a well-appearing 21-year-old female that presents the emergency department for evaluation of 1 week colicky left lower quadrant abdominal pain. She is approximately 13 weeks . She does have a 5-month-old in her custody. She did have some association of symptoms with urination but no nova dysuria. Her urine is unremarkable for signs of infection. Screening labs are also unrevealing. Limited OB ultrasound confirms a 13-week IUP with good heart rate. Ovaries were seen and within normal limits no torsion. No abdominal free fluid. A retroperitoneal ultrasound to evaluate the kidneys was also completed and no findings of hydronephrosis was seen. At this time the cause of this left lower quadrant abdominal pain is not clear though her abdominal exam is rather benign and she has no high risk features such as high fevers, uncontrolled vomiting or peritoneal exam. Patient is encouraged to continue to follow-up with OB and emergent worrisome return precautions were discussed. Departure - Departure Disposition: 01 Home, Self Care Clinical Impression: LLQ abdominal pain, 13 weeks gestation of Condition: Stable Record reviewed to determine appropriate education?: Yes Follow-Up: Ifeoma White MD [Provider Admit Priv/Credential] - Comments: You are seen in the ER today for about 1 week of left lower abdominal pain. Your screening labs today are unremarkable. You do not have a urinary tract infection. We did do an ultrasound that confirmed you are 13 weeks . The baby has a good heart rate. We also did an ultrasound to look at your kidneys to make sure that there were no obvious findings of swelling or kidney stones and there were no abnormal findings seen. It is okay to continue to take Tylenol as needed for discomfort. Please discuss this ED visit with your OB. If any point you develop high fevers, have severe or different abdominal pain or uncontrolled vomiting then please return to the ER for a second look.
[2021-02-23 11:47] LABS: BASOPHILS % (AUTO) 0.6 %; EOSINOPHILS # (AUTO) 0.1 10^3/uL (0.0-0.7); EOSINOPHILS % (AUTO) 1.2 %; HCT - HEMATOCRIT 38.5 % (37.0-47.0); HGB - HEMOGLOBIN 12.3 g/dL (12.0-16.0); LYMPHOCYTES # (AUTO) 1.7 10^3/uL (1.5-3.5); LYMPHOCYTES % (AUTO) 25.5 %; MEAN CORPUSCULAR HEMOGLOBIN 26.9 pg (27.0-31.0); MEAN CORPUSCULAR HGB CONC 31.9 g/dL (32.0-36.0); MEAN CORPUSCULAR VOLUME 84.2 fL (81.0-99.0); MEAN PLATELET VOLUME 10.8 fL (7.9-10.8); MONOCYTES # (AUTO) 0.5 10^3/uL (0.0-1.0); MONOCYTES % (AUTO) 7.1 %; NEUTROPHILS # (AUTO) 4.3 10^3/uL (1.5-6.6); NEUTROPHILS % (AUTO) 65.1 %; PLT - PLATELET COUNT 186 10^3/uL (130-450); RED BLOOD COUNT 4.57 10^6/uL (4.20-5.40); RED CELL DISTRIBUTION WIDTH 14.2 % (12.0-15.0); WHITE BLOOD COUNT 6.7 x10^3/uL (4.8-10.8)
[2021-02-23 12:05] LABS: ALBUMIN 3.8 g/dL (3.2-5.5); BILIRUBIN,TOTAL 0.7 mg/dL (0.2-1.0); CALCIUM 9.1 mg/dL (8.5-10.3); CREATININE 0.5 mg/dL (0.4-1.0); POTASSIUM 4.1 mmol/L (3.5-5.0); TOTAL PROTEIN 7.6 g/dL (6.7-8.2)
[2021-02-23 12:14] LABS: BILIRUBIN,URINE NEGATIVE (NEGATIVE); GLUCOSE, URINE (UA) NEGATIVE (NEGATIVE); KETONES,URINE (UA) NEGATIVE (NEGATIVE); LEUKOCYTE ESTERASE, URINE NEGATIVE (NEGATIVE); NITRITE,URINE NEGATIVE (NEGATIVE); OCCULT BLOOD,URINE NEGATIVE (NEGATIVE); PROTEIN,URINE NEGATIVE (NEGATIVE); UROBILINOGEN,URINE 0.2 (NORMAL) E.U./dL (NORMAL)
[2021-02-23 12:17] LABS: CLARITY,URINE CLEAR (CLEAR)
[2021-02-23 12:42] VITALS: BP 132/78
--- NOTE | 2021-02-23 12:58 | Ultrasound Report ---
PROCEDURE: OB First Trimester INDICATIONS: LLQ abd pain OUTSIDE/PRIOR DATING DATA: Last menstrual period (LMP): 11/18/2020. LMP-based estimated date of delivery (NIKKO): 07/07/2021. First dating scan (date and location): 01/07/2021. Estimated date of delivery (NIKKO) from first dating scan: 09/01/2021. The below data below was generated using the NIKKO of 09/01/2021 TECHNIQUE: Real-time scanning was performed of the fetus and maternal pelvic organs, with image documentation. COMPARISON: 01/07/2021 FINDINGS: Embryo: [place]-rump length 6.73 cm corresponds with 13 week 0 day gestation. No perigestational bleed Heart rate: 160 Placenta is posterior Measurement variability in dating: +/- 4 weeks by LMP, +/- 7 days by mean sac diameter (use before 6 weeks gestation if crown-rump length not able to be measured), +/- 5 days by crown-rump length (6-12 weeks gestation). Maternal organs: Ovaries within normal limits. No free fluid. No adnexal mass. Cervix measures 3.7 c m in length, and is closed. IMPRESSION: Single live intrauterine corresponds 13 week 0 day gestation. No perigestational bleed. Reviewed by: Meño Guillory MD on 02/23/2021 11:57 AM [facility] Approved by: Meño Guillory MD on 02/23/2021 11:57 AM [facility] Station ID: [id number]
--- NOTE | 2021-02-23 13:01 | Ultrasound Report ---
PROCEDURE: Retroperitoneal INDICATIONS: LLQ abd pain; 13 weeks ; ? renal colic TECHNIQUE: Real-time scanning was performed of the retroperitoneal organs, with image documentation. COMPARISON: None. FINDINGS: Kidneys: Kidneys are normal in size. Right kidney measures 11.7 cm long; left kidney measures 12.4 cm long. Right renal cortical thickness is 1.4 cm; left renal cortical thickness is 1.6 cm. No ken d masses, hydronephrosis, or nephrolithiasis. Urinary bladder is empty IMPRESSION: Unremarkable renal ultrasound without hydronephrosis Reviewed by: Meño Guillory MD on 02/23/2021 11:59 AM [facility] Approved by: Meño Guillory MD on 02/23/2021 11:59 AM [facility] Station ID: [id number]
== END 2021-02-23 12:44 | disposition home or self-care (01) ==
LOC: ED 11:10
DX: O26.891 Other specified pregnancy related conditions, first trimester (principal); R10.32 Left lower quadrant pain; Z3A.13 13 weeks gestation of pregnancy
CPT/HCPCS: 36415; 80053; 81001; 81003; 83690; 85025; 87086; 99283; 99284

== ENCOUNTER 2021-03-28 20:32 | Outpatient (CLI) | payer MEDICAID | END 2021-03-28 20:33 | disposition home or self-care (01) | LOC: LAB 20:32 | PROVIDERS: ATTEND Obstetrics & Gynecology | DX: Z34.80 Encounter for supervision of other normal pregnancy, unspecified trimester (principal); Z36.89 Encounter for other specified antenatal screening | CPT/HCPCS: 81599; 82105 ==

== ENCOUNTER 2021-04-12 13:49 | Outpatient (CLI) | payer MEDICAID ==
--- NOTE | 2021-04-14 12:19 | Ultrasound Report ---
PROCEDURE: OB Detailed Eval INDICATIONS: SUPERVISION OF OUTSIDE/PRIOR DATING DATA: Last menstrual period (LMP): 11/18/2020. LMP-based estimated date of delivery (NIKKO): 07/07/2021. First dating scan (date and location): 01/07/2021. Estimated date of delivery (NIKKO) from first dating scan: 09/01/2021. The below data below was generated using the ultrasound NIKKO of 09/01/2021 TECHNIQUE: Real-time scanning was performed of the fetus, with image documentation and biometric measurements. Endovaginal scanning: Not performed COMPARISON: 02/23/2021 FINDINGS: General: A single living intrauterine gestation is present. Presentation: Variable Placenta: Placental position is posterior, with marginal previa. Amniotic fluid index: 10.2 cm, within normal limits for gestational age. heart rate: 157 beats per minute. Maternal cervical canal: Long and closed biometrics: Biparietal diameter: 4.30 cm, 19 weeks 0 days Head circumference: 17.28 cm, 19 weeks 6 days Abdominal circumference: 16.25 cm, 21 weeks 2 days Femur length: 2.97 cm, 19 weeks 1 day Estimated gestational age from initial scan: not applicable. Composite gestational age from present scan: 19 weeks 6 days Estimated weight and percentile: 340.6 g, 75th percentile Measurement variability in biometric dating: +/- 10 days from 12-20 weeks gestation, +/- 2 weeks from 20-30 weeks gestation, +/- 3 weeks at 30 weeks gestation or later. Anatomic survey: Neuro: Ventricles are normal at less than 10 mm. Cisterna magna is normal at 3-11 mm. Cerebellum i s normal in size and morphology. Nuchal skin fold: Normal at less than 6 mm between 14 and 20 weeks gestational age. Face: Nose and lips within normal limits. profile not well seen. Spine: No evidence for spina bifida. Heart: 4-chambered heart is present, with normal ventricular outflow tracts. Diaphragm: Diaphragm is intact. Stomach: Left-sided stomach is present. Kidneys: No hydronephrosis. Normal is less than 5 mm in 2nd trimester, less than 7 mm in 3rd trimester. Cord: 3 vessel cord has orthotopic insertion. Bladder: Normal in size. Extremities: All 4 extremities are visualized. IMPRESSION: 1. Living second trimester intrauterine . Current ultrasound age is 1 day greater than clini anila age based on initial first trimester ultrasound. 2. Marginal previa. 3. profile not well seen. Comment: Recommend follow-up imaging to evaluate the profile and the location of the placenta r elative to the cervical os. Reviewed by: Wei Linn MD on 04/14/2021 12:18 PM PDT Approved by: Wei Linn MD on 04/14/2021 12:18 PM PDT Station ID: [id number]
== END 2021-04-12 13:50 | disposition home or self-care (01) ==
LOC: DI 13:49
PROVIDERS: ATTEND Obstetrics & Gynecology
DX: Z36.89 Encounter for other specified antenatal screening (principal); O44.22 Partial placenta previa NOS or without hemorrhage, second trimester; Z3A.19 19 weeks gestation of pregnancy

== ENCOUNTER 2021-05-09 13:58 | Outpatient (CLI) | payer MEDICAID ==
--- NOTE | 2021-05-09 16:25 | Ultrasound Report ---
PROCEDURE: OB F/U or Repeat INDICATIONS: SUPERVISION OF NORMAL OUTSIDE/PRIOR DATING DATA: Last menstrual period (LMP): November 18, 2020. LMP-based estimated date of delivery (NIKKO): August 25, 2021. First dating scan (date ): January 07, 2021. Estimated date of delivery (NIKKO) from first dating scan: September 01, 2021. The below data below was generated using the ultrasound NIKKO of September 01, 2021 TECHNIQUE: Real-time scanning was performed of the fetus, with image documentation and biometric measurements. COMPARISON: April 12, 2021. FINDINGS: General: A single living intrauterine gestation is present. Presentation: Cephalic Placenta: Placental position is posterior, without previa. Amniotic fluid index: 12.1 cm, appropriate for gestational age. heart rate: 157 beats per minute. Maternal cervical canal: 4.4 cm long; normal length is 2.5 cm or more. Anatomic survey: Neuro: Not evaluated. Nuchal skin fold: Not evaluated. Face: Nose and lips, facial profile are normal. Spine: No evidence for spina bifida. Heart: Not evaluated. Diaphragm: Diaphragm is intact. Stomach: Left-sided stomach is present. Kidneys: No hydronephrosis. Normal is less than 5 mm in 2nd trimester, less than 7 mm in 3rd trimester. Cord: Not evaluated. Bladder: Normal in size. Extremities: Not evaluated. Other: Not applicable. IMPRESSION: Live single intrauterine gestation as detailed above. Reviewed by: Renard Almonte MD on 05/09/2021 4:24 PM PST Approved by: Renard Almonte MD on 05/09/2021 4:24 PM PST Station ID: [id number]
== END 2021-05-09 13:59 | disposition home or self-care (01) ==
LOC: DI 13:58
PROVIDERS: ATTEND Obstetrics & Gynecology
DX: O44.40 Low lying placenta NOS or without hemorrhage, unspecified trimester (principal); Z3A.00 Weeks of gestation of pregnancy not specified

== ENCOUNTER 2021-06-06 21:09 | Outpatient (CLI) | payer MEDICAID ==
--- NOTE | 2021-06-06 21:51 | PROVIDER PROGRESS NOTE ---
- HPI Chief Complaint: Labor Current : Vital Signs Temperature 209.1 F H 06/06/21 21:33 Heart Rate 103 H 06/06/21 21:33 Respiratory Rate 20 06/06/21 21:33 Blood Pressure 138/84 H 06/06/21 21:33 Temperature 209.1 F H 06/06/21 21:33 Heart Rate 103 H 06/06/21 21:33 Respiratory Rate 20 06/06/21 21:33 Blood Pressure 138/84 H 06/06/21 21:33 O2 Saturation - Procedures NST Procedure: NST Procedure Start Time 21:27 Stop Time 21:55 EFM 145 mod chuck 15x15 accels no decels TOCO: quiet Service Date of procedure: 06/06/21 - Plan Plan: ID: patient is a 21 yo at 27+4 wga here for assessment of labor HPI: Patient reports passing mucus plug this evening. No gush of fluid or contractions. Recent IC. complicated by short interpregnancy interval. Marginal previa on 20 week us resolved on follow-up. Has been vomiting and having diarrhea this week. Feeling weak. PNC: PROB: Shoulder dystocia with NRP last delivery GHTN- on ASA PPH Short interpregnancy interval LMP:11/18/2020 NIKKO by LMP: 08/25/2021 Initial US @ 6.1 wks not consistent with LMP dating. NIKKO by initial US: 09/01/2021 A+/rubella immune Genetic testing: [place] Negative having a BOY AFP 03/28/2021 NEGATIVE FAS: Marginal previa, facies not cleared. EFW 75%ile, posterior Cleared on fu, LL placenta resolved Glucola ordered today 05/27/2021 Flu: 03/28/21 TDAP: next visit Covid vaccine: 10/26/20 and 11/16/20 Glucola: 05/27/2021 TDAP: at 28 weeks GBS @ 37.0wks- neg HSV: denies in self and partner Breast pump Rx : provided MOD: Anticipate CVD; prior SD pp contraception:TBD PAP: 03/03/2020- LSIL (HPV pos, 16/18 neg) NEEDS NEXT VISIT OB HX: Delivered her son 09/04/20 . Delivery was complicated by 1.5 minutes shoulder dystocia and Apgars of 2/5/8, borderline gases, required chest compressions, and an PPH with EBL of 800. BW delayed but was 3660 on PPD#1. Did not meet cooling criteria. Patient reports infant was 9-10lbs at but records more c/w 8#. Reports that she was evaluated for pre-eclampsia but is unsure of her DX. Review of her records does show that she met criteria for GHTN. Has had BV x2 in the last 2 weeks, treated with flagyl and then clindamycin. Symptoms have since resolved. Past Medical History: Asthma Past Surgical History: Unremarkable ROS: As per HPI, otherwise remaining systems are negative. PE: VS: 138/84 20 103 GEN: NAD HEAD: NCAT EYES: No scleral icterus or conjunctival injection CV: RRR RESP: CTAB, normal effort ABD: S&NT/ND PSYCH: appropriate affect NEURO: alert and oriented, normal gait and coordination EXT: WWP EFM 145 mod chuck 15x15 accels no decels TOCO: quiet A/P: Patient is a 21 yo at 27+4 wga here for assessment of labor FWB: Cat I tracing, AGA PTL EVAL: FFN, GCCT, Vaginitis panel pending TVCL ordered
[2021-06-06] MEDS ORDERED: LACTATED RINGERS 1,000 ML IV SCH (22:00)
[2021-06-06 22:45] VITALS: BP 138/84
--- NOTE | 2021-06-06 23:02 | Ultrasound Report ---
PROCEDURE: OB Limited INDICATIONS: V DISCHARGE, CRAMPING, cx L OUTSIDE/PRIOR DATING DATA: Last menstrual period (LMP): 11/18/2020. LMP-based estimated date of delivery (NIKKO): 08/25/2021. First dating scan (date and location): 01/07/2021. Estimated date of delivery (NIKKO) from first dating scan: 09/01/2021. TECHNIQUE: Real-time scanning was performed of the fetus, with image documentation. Endovaginal scanning: None COMPARISON: None. FINDINGS: A single living intrauterine gestation is present. Presentation: Cephalic Placenta: Placental position is posterior, without previa. Amniotic fluid index: 12.5 cm, normal for gestational age. heart rate: 153 beats per minutes. Maternal cervical canal: 4.4 cm long; normal length is 2.5 cm or more. Estimated gestational age from initial scan: 27 week 4 day Largest vertical pocket 3.5 cm Incidentally, the umbilical cord is adjacent to the neck. IMPRESSION: Single live intrauterine consistent with a 27 week 4 day gestation. Cervix measures 4.4 cm in length, and is closed Incidental nuchal cord Reviewed by: Meño Guillory MD on 06/06/2021 10:00 PM [facility] Approved by: Meño Guillory MD on 06/06/2021 10:00 PM [facility] Station ID: [id number]
--- NOTE | 2021-06-06 23:08 | PROVIDER PROGRESS NOTE ---
Subjective - Prog Note Date Prog Note Date: 06/06/21 Prog Note Time: 23:03 - Subjective Subjective: Patient is a 21 yo at 27+4 wga here for assessment of labor No further fluid loss. No contraction on monitor. Patient receiving IVF bolus gi angela recency of emesis and diarrhea. Patient declines antiemetics. CL with formal us was 4.4 cm. head not on cervix. MVP 3.5 Nuchal cord noted FFN negative SVE: cervix too high to palpate AFFIRM and GCCT pending A/P: PTL assessment FWB: Cat I tracing, AGA -tight nuchal cord noted on us. Reviewed with patient. Considering alternative delivery options given trauma of last PTL EVAL: Reassuring FFN and CL Reassuring physical exam Reassured patient regarding labor VAGINITIS STUDIES PENDING- will fu outpatient DX: False labor Objective - Vital Signs/Intake & Output Vital Signs: Vital Signs x48h Temp Pulse Pulse Resp BP BP 06/06/21 22:44 208.8 F H 106 H 20 138/84 H 06/06/21 22:35 208.8 F H 106 H 20 134/84 H 06/06/21 21:33 209.1 F H 103 H 20 138/84 H - Lab Results Other Labs: Lab Results x24hrs 06/06/21 Range/Units 22:22 Fibronectin NEGATIVE (NEGATIVE)
[2021-06-07 00:40] LABS: BACTERIAL VAGINOSIS DNA NEGATIVE (NEGATIVE); CANDIDA GLABRATA DNA NEGATIVE (NEGATIVE); CANDIDA GROUP DNA NEGATIVE (NEGATIVE); CANDIDA KRUSEI DNA NEGATIVE (NEGATIVE); TRICHOMONAS VAGINALIS DNA NEGATIVE (NEGATIVE)
[2021-06-07 01:15] LABS: CHLAMYDIA TRACHOMATIS DNA NEGATIVE (NEGATIVE); NEISSERIA GONORRHOEAE DNA NEGATIVE (NEGATIVE); TRICHOMONAS VAGINALIS DNA NEGATIVE (NEGATIVE)
== END 2021-06-06 23:09 | disposition home or self-care (01) ==
LOC: WFO 21:09 → FBP 21:26 → WFO 23:09
PROVIDERS: ATTEND Obstetrics & Gynecology
DX: O47.02 False labor before 37 completed weeks of gestation, second trimester (principal); O09.892 Supervision of other high risk pregnancies, second trimester; R19.7 Diarrhea, unspecified; R11.2 Nausea with vomiting, unspecified; O13.2 Gestational [pregnancy-induced] hypertension without significant proteinuria, second trimester; Z79.82 Long term (current) use of aspirin
CPT/HCPCS: 36415; 76815; 82731; 87481; 87491; 87591; 87661; 87801; 99213; J7120; 85025

== ENCOUNTER 2021-06-10 10:34 | Outpatient (CLI) | payer MEDICAID ==
[2021-06-10 15:33] LABS: HCT - HEMATOCRIT 38.2 % (37.0-47.0); HGB - HEMOGLOBIN 12.2 g/dL (12.0-16.0); MEAN CORPUSCULAR HEMOGLOBIN 28.8 pg (27.0-31.0); MEAN CORPUSCULAR HGB CONC 31.9 g/dL (32.0-36.0); MEAN CORPUSCULAR VOLUME 90.3 fL (81.0-99.0); MEAN PLATELET VOLUME 12.1 fL (7.9-10.8); RED BLOOD COUNT 4.23 10^6/uL (4.20-5.40); RED CELL DISTRIBUTION WIDTH 13.2 % (12.0-15.0); WHITE BLOOD COUNT 7.2 x10^3/uL (4.8-10.8)
== END 2021-06-10 10:35 | disposition home or self-care (01) ==
LOC: LAB.N 10:34
PROVIDERS: ATTEND Obstetrics & Gynecology
DX: Z34.80 Encounter for supervision of other normal pregnancy, unspecified trimester (principal); Z36.89 Encounter for other specified antenatal screening
CPT/HCPCS: 36415; 82950; 85027; 86850

== ENCOUNTER 2021-06-28 11:58 | Outpatient (CLI) | payer MEDICAID ==
[2021-06-28 12:31] LABS: HCT - HEMATOCRIT 36.8 % (37.0-47.0); MEAN CORPUSCULAR HEMOGLOBIN 28.6 pg (27.0-31.0); MEAN CORPUSCULAR HGB CONC 32.6 g/dL (32.0-36.0); MEAN CORPUSCULAR VOLUME 87.8 fL (81.0-99.0); MEAN PLATELET VOLUME 11.4 fL (7.9-10.8); RED BLOOD COUNT 4.19 10^6/uL (4.20-5.40); RED CELL DISTRIBUTION WIDTH 12.9 % (12.0-15.0); WHITE BLOOD COUNT 8.8 x10^3/uL (4.8-10.8)
== END 2021-06-28 11:59 | disposition home or self-care (01) ==
LOC: LAB 11:58
PROVIDERS: ATTEND Nurse Practitioner Obstetrics & Gynecology
DX: R53.83 Other fatigue (principal)
CPT/HCPCS: 36415; 85027

== ENCOUNTER 2021-07-04 08:00 | Outpatient (CLI) | payer MEDICAID | END 2021-07-04 23:59 | disposition home or self-care (01) | LOC: LAB.WC 08:00 | PROVIDERS: ATTEND Obstetrics & Gynecology | DX: O60.00 Preterm labor without delivery, unspecified trimester (principal) | CPT/HCPCS: 36415; 82731 ==

== ENCOUNTER 2021-07-25 08:00 | Outpatient (CLI) | payer MEDICAID | END 2021-07-25 23:59 | LOC: LAB 08:00 | PROVIDERS: ATTEND Obstetrics & Gynecology | DX: Z34.80 Encounter for supervision of other normal pregnancy, unspecified trimester (principal) | CPT/HCPCS: 87797 ==

== ENCOUNTER 2021-07-25 11:57 | Outpatient (CLI) | payer MEDICAID ==
[2021-07-25 12:35] LABS: BASOPHILS # (AUTO) 0.1 10^3/uL (0.0-0.1); BASOPHILS % (AUTO) 0.5 %; EOSINOPHILS # (AUTO) 0.1 10^3/uL (0.0-0.7); EOSINOPHILS % (AUTO) 1.3 %; HCT - HEMATOCRIT 38.4 % (37.0-47.0); HGB - HEMOGLOBIN 12.5 g/dL (12.0-16.0); LYMPHOCYTES # (AUTO) 1.4 10^3/uL (1.5-3.5); LYMPHOCYTES % (AUTO) 14.4 %; MEAN CORPUSCULAR HEMOGLOBIN 28.8 pg (27.0-31.0); MEAN CORPUSCULAR HGB CONC 32.6 g/dL (32.0-36.0); MEAN CORPUSCULAR VOLUME 88.5 fL (81.0-99.0); MEAN PLATELET VOLUME 11.2 fL (7.9-10.8); MONOCYTES # (AUTO) 0.9 10^3/uL (0.0-1.0); MONOCYTES % (AUTO) 9.1 %; NEUTROPHILS # (AUTO) 6.8 10^3/uL (1.5-6.6); NEUTROPHILS % (AUTO) 72.8 %; PLT - PLATELET COUNT 157 10^3/uL (130-450); RED BLOOD COUNT 4.34 10^6/uL (4.20-5.40); RED CELL DISTRIBUTION WIDTH 13.2 % (12.0-15.0); WHITE BLOOD COUNT 9.4 x10^3/uL (4.8-10.8)
[2021-07-25 12:49] LABS: ALBUMIN/GLOBULIN RATIO 0.8 (1.0-2.2); BILIRUBIN,TOTAL 0.5 mg/dL (0.2-1.0); CALCIUM 8.8 mg/dL (8.5-10.3); CREATININE 0.4 mg/dL (0.4-1.0); POTASSIUM 3.8 mmol/L (3.5-5.0)
[2021-07-25 13:25] LABS: CREATININE,URINE 13.6 mg/dL
[2021-07-25 13:27] LABS: TOTAL PROTEIN,URINE TIMED < 6 mg/dL
[2021-07-25] MEDS ORDERED: LACTATED RINGERS 1,000 ML IV ONE (15:32)
[2021-07-25] MEDS ORDERED: METOCLOPRAMIDE 10 MG/2 ML VIAL IVP ONE (16:00)
[2021-07-25 17:40] VITALS: BP 122/65
--- NOTE | 2021-07-27 12:00 | Labor Flowsheet ---
Labor Flowsheet Datetime Report Generated by CPN: 07/27/2021 12:00 Datetime: 07/27/2021 11:25 VITAL SIGNS NBP Sys/Annmarie/Mean (mmHg): 126 : 70 : 84 Pulse: 75 COMMUNICATION LaborFlag: OB Triage Datetime: 07/25/2021 15:29 SpO2 (%): 100 Datetime: 07/25/2021 12:10 Stage of : OB Triage Datetime: 06/06/2021 22:53 VAGINAL EXAM Dilatation (cm): 0.0 Exam by: MCSOrely Membrane Status: Intact Datetime: 06/06/2021 21:28 Respirations: 20 Temperature (C): 37.1 Temperature Route: Oral UTERINE ACTIVITY Monitor Mode: External Monitor Interventions for UA: [place] Adjusted Frequency (min): pt denies Resting Tone (Palpate): Relaxed ASSESSMENT A Monitor Mode: External US FHR Baseline Rate : 140 Variability: appropriate for gestational age PAIN Pain Scale: 3 Pain Presence: Intermittent Pain Type: Cramping Pain Location: Abdomen Pain Goal: 0 MATERNAL ASSESSMENT Level of Consciousness: Alert
--- NOTE | 2021-08-15 06:25 | PROVIDER PROGRESS NOTE ---
- HPI Chief Complaint: Hypertension/PIH Current : Current EDU 09/01/21 Gestation 34 Weeks and 4 Days 2 Para 1 Vital Signs Temperature 98.6 F 07/25/21 12:09 Heart Rate 118 H 07/25/21 12:09 Respiratory Rate 18 07/25/21 12:09 Blood Pressure 132/73 H 07/25/21 12:09 Temperature 97.7 F 07/25/21 17:28 Heart Rate 97 07/25/21 17:28 Respiratory Rate 18 07/25/21 17:28 Blood Pressure 122/65 07/25/21 17:28 O2 Saturation - Procedures OB Procedure Performed: NST Diagnosis/Indication for NST: Gestational Hypertension NST Procedure: NST Procedure Start Date 07/25/21 Start Time 12:07 Stop Time 12:30 Vibroacoustic Stimulation Used No Patient States Movement Yes EFM 130 mod chuck 15x15 accels no decels TOCO: quiet Service Date of procedure: 07/25/21 - Plan Plan: Patient is a 21 y o at 34+4 wga here for assessment of PIH. Patient was seen in clinic today and reported headache that does not improve with tylenol. Blood pressure in clinic was 144/86. Repeat blood pressure was 142/88. Reports having headache since last . Took 1000 mg of tylenol without relieve. No flashing lights or black spots. Reported aura in peripheral vision in clinic earlier today. No RUQ pain. Had GHTN in prior . Normal blood pressures this . No CTX/VB/LOF. Endorses FM PNC: LMP:11/18/2020 NIKKO by LMP: 08/25/2021 Initial US @ 6.1 wks not consistent with LMP dating. NIKKO by initial US: 09/01/2021 Elevated BPs in mild range with BOSS persistent s/p tylenol 1000 mg and intermittent aura in peripheral vision GBS neg A+/rubella immune Genetic testing: [place] Negative having a BOY AFP 03/28/2021 NEGATIVE FAS: Marginal previa, facies not cleared. EFW 75%ile, posterior F/U US WNL placenta posterior w/o previa Glucola 103 Flu: 03/28/21 TDAP: 06/16/2021 Covid vaccine: 10/26/20 and 11/16/20 GBS @ 37.0wks- neg HSV: denies in self and partner Breast pump Rx : provided MOD: Desires elective CS prior SD pp contraception:TBD PAP: 03/03/2020- LSIL (HPV pos, 1618 neg) post PMH: GHTN In prior Asthma Hx of complicated shoulder dystocia PSH: none FH: MGM with HTN and CVA Mother in good health No contact with father Denes cancer/DM SOC HX: Works at [employer] No KASEY New partner this - Sergio ROS: As per HPI, otherwise remaining systems are negative PE: VS: 98.6 118 132/73 18 131/64 97.7 97 122/65 18 GEN: NAD HEAD: NCAT EYES: No scleral icterus or conjunctival injection CV: RRR RESP: CTAB, normal effort ABD: S&NT/ND, gravid, No RUQ TTP PSYCH: appropriate affect NEURO: alert and oriented, normal gait and coordination EXT: WWP EFM 130 mod chuck 15x15 accels no decels TOCO: quiet A/P: Patient is a 21 y o at 34+4 wga here for assessment of PIH. PIH: Blood pressures are all wnl in triage. Observed for 5.5 hours -PIH labs not meeting criteria for pre-eclampsia P:C wnl, HCT 38.4 Plts 157 LFTs and creatinine wnl -Does not meet criteria for transfer -Does not yet meet criteria for GHTN given that two elevated measures were not more than 4 hours apart -Likely migraine and also appears volume depleted BOSS: Suspect migraine -COVID testing neg -TSH wnl HYPONATREMIA: Sodium 130 and patient with poor intake and tachycardic -IV placed and IV fluid bolus given -Has already taken max dose of acetaminophen -Given IV reglan -Recommend taking benadryl and return home to sleep FWB: Cat I tracing Discharged to home DOS: 07/25/21 NST read 07/25/21
== END 2021-07-25 17:41 | disposition home or self-care (01) ==
LOC: WFO 11:57 → FBP 11:59 → WFO 17:41
PROVIDERS: ATTEND Obstetrics & Gynecology
DX: O99.283 Endocrine, nutritional and metabolic diseases complicating pregnancy, third trimester (principal); E87.1 Hypo-osmolality and hyponatremia; R03.0 Elevated blood-pressure reading, without diagnosis of hypertension; R51.9 Headache, unspecified; Z86.79 Personal history of other diseases of the circulatory system; Z3A.34 34 weeks gestation of pregnancy; Z34.80 Encounter for supervision of other normal pregnancy, unspecified trimester
CPT/HCPCS: 36415; 59025; 80053; 82570; 84156; 84443; 85025; 87635; 87797; 96361; 96374; 99215; J2765; J7120

== ENCOUNTER 2021-07-27 17:21 | Outpatient (CLI) | payer MEDICAID ==
[2021-07-27] MEDS ORDERED: BUTALB/ACETAM/CAFF 50/325/40MG TABLET PO PRN (17:40)
--- NOTE | 2021-07-27 17:52 | PROVIDER PROGRESS NOTE ---
- HPI Chief Complaint: Other (Patient presents with complaints of a headache. She reports a headache started last week. She was seen in labor and delivery for elevated blood pressures but ruled out for preeclampsia. She reports her headache has been persistent and not relieved by Tylenol. She notes positive movement.) Current : Vital Signs Vital Signs - 24 hr 07/27/21 07/27/21 07/27/21 17:28 17:51 17:55 Temperature 99.1 F 99.1 F Heart Rate [ 124 H Brachial] Respiratory 20 Rate Blood Pressure 143/93 H 136/84 H [Right Brachial artery] 07/27/21 07/27/21 07/27/21 17:59 18:15 18:32 Temperature Heart Rate [ Brachial] Respiratory Rate Blood Pressure 138/84 H 130/79 128/74 [Right Brachial artery] Oxygen O2 Source Room air WBC 8.4 x10^3/uL (4.8-10.8) 07/27/21 18:16 RBC 4.23 10^6/uL (4.20-5.40) 07/27/21 18:16 Hgb 12.1 g/dL (12.0-16.0) 07/27/21 18:16 Hct 37.6 % (37.0-47.0) 07/27/21 18:16 MCV 88.9 fL (81.0-99.0) 07/27/21 18:16 MCH 28.6 pg (27.0-31.0) 07/27/21 18:16 MCHC 32.2 g/dL (32.0-36.0) 07/27/21 18:16 RDW 13.2 % (12.0-15.0) 07/27/21 18:16 Plt Count 148 10^3/uL (130-450) 07/27/21 18:16 MPV 11.8 fL (7.9-10.8) H 07/27/21 18:16 Neut # (Auto) 5.7 10^3/uL (1.5-6.6) 07/27/21 18:16 Lymph # (Auto) 1.5 10^3/uL (1.5-3.5) 07/27/21 18:16 [place] # (Auto) 0.9 10^3/uL (0.0-1.0) 07/27/21 18:16 Eos # (Auto) 0.1 10^3/uL (0.0-0.7) 07/27/21 18:16 Baso # (Auto) 0.0 10^3/uL (0.0-0.1) 07/27/21 18:16 Absolute Nucleated RBC 0.00 x10^3/uL 07/27/21 18:16 Nucleated RBC % 0.0 /100WBC 07/27/21 18:16 Sodium 133 mmol/L (135-145) L 07/27/21 18:16 Potassium 3.7 mmol/L (3.5-5.0) 07/27/21 18:16 Chloride 101 mmol/L (101-111) 07/27/21 18:16 Carbon Dioxide 23 mmol/L (21-32) 07/27/21 18:16 Anion Gap 9.0 (6-13) 07/27/21 18:16 BUN 16 mg/dL (6-20) 07/27/21 18:16 Creatinine 0.4 mg/dL (0.4-1.0) 07/27/21 18:16 Estimated GFR (MDRD) 200 (>89) 07/27/21 18:16 Glucose 81 mg/dL (70-100) 07/27/21 18:16 Calcium 8.9 mg/dL (8.5-10.3) 07/27/21 18:16 Total Bilirubin 0.4 mg/dL (0.2-1.0) 07/27/21 18:16 AST 18 IU/L (10-42) 07/27/21 18:16 ALT 16 IU/L (10-60) 07/27/21 18:16 Alkaline Phosphatase 107 IU/L (42-121) 07/27/21 18:16 Total Protein 6.7 g/dL (6.7-8.2) 07/27/21 18:16 Albumin 2.9 g/dL (3.2-5.5) L 07/27/21 18:16 Globulin 3.8 g/dL (2.1-4.2) 07/27/21 18:16 Albumin/Globulin Ratio 0.8 (1.0-2.2) L 07/27/21 18:16 Urine Creatinine 95.0 mg/dL 07/27/21 17:45 Ur Total Protein Timed 10 mg/dL 07/27/21 17:45 Protein/Creatinin Ratio 0.1 (<=0.2) 07/27/21 17:45 - Exam General- no acute distress Abdomen- soft nontender - Procedures OB Procedure Performed: NST Diagnosis/Indication for NST: Gestational Hypertension NST Procedure: NST Procedure Start Time 12:07 Stop Time 12:30 heart rate baseline- 140 beats per minutes Moderate variability Accelerations 15x15 Decelerations none Contractions rare NST reactive and reassuring Service Date of procedure: 07/27/21 - Plan Plan: 21-year-old at 34 weeks 6 days presents with complaints of headache and elevated blood pressure #Headachepersistent rates 4 out of 10. Not relieved by Tylenol. Fioricet ordered. Preeclampsia labs ordered. Plan for blood pressure monitoring #Elevated blood pressurespatient now ruled in for gestational hypertension based on elevated blood pressures previously and elevated blood pressure noted on admission today. Preeclampsia labs pending #Tachycardiapatient noted to have pulse in the 110s to 120s. She reports tachycardia was noted during her last triage visit. She was tested for Covid and was negative at that time. Her temperature today is 99.1. EKG was ordered. F/u: EKG showed sinus tachycardia with pulse improved to 100's. Labs wnl. Headache improved with Fioricet. Gestational hypertension. Recommend follow-up in 24 to 48 hours for blood pressure check. Preeclampsia warnings given. Kick count precautions given.
[2021-07-27 18:16] LABS: PROTEIN/CREATININE RATIO,URINE 0.1 (<=0.2)
[2021-07-27 18:30] LABS: BASOPHILS % (AUTO) 0.4 %; EOSINOPHILS # (AUTO) 0.1 10^3/uL (0.0-0.7); EOSINOPHILS % (AUTO) 1.3 %; HCT - HEMATOCRIT 37.6 % (37.0-47.0); HGB - HEMOGLOBIN 12.1 g/dL (12.0-16.0); LYMPHOCYTES # (AUTO) 1.5 10^3/uL (1.5-3.5); LYMPHOCYTES % (AUTO) 18.1 %; MEAN CORPUSCULAR HEMOGLOBIN 28.6 pg (27.0-31.0); MEAN CORPUSCULAR HGB CONC 32.2 g/dL (32.0-36.0); MEAN CORPUSCULAR VOLUME 88.9 fL (81.0-99.0); MEAN PLATELET VOLUME 11.8 fL (7.9-10.8); MONOCYTES # (AUTO) 0.9 10^3/uL (0.0-1.0); NEUTROPHILS # (AUTO) 5.7 10^3/uL (1.5-6.6); NEUTROPHILS % (AUTO) 67.5 %; PLT - PLATELET COUNT 148 10^3/uL (130-450); RED BLOOD COUNT 4.23 10^6/uL (4.20-5.40); RED CELL DISTRIBUTION WIDTH 13.2 % (12.0-15.0); WHITE BLOOD COUNT 8.4 x10^3/uL (4.8-10.8)
[2021-07-27 18:33] VITALS: BP 128/74
[2021-07-27 18:37] LABS: ALBUMIN 2.9 g/dL (3.2-5.5); ALBUMIN/GLOBULIN RATIO 0.8 (1.0-2.2); BILIRUBIN,TOTAL 0.4 mg/dL (0.2-1.0); CALCIUM 8.9 mg/dL (8.5-10.3); CREATININE 0.4 mg/dL (0.4-1.0); POTASSIUM 3.7 mmol/L (3.5-5.0); TOTAL PROTEIN 6.7 g/dL (6.7-8.2)
== END 2021-07-27 19:30 | disposition home or self-care (01) ==
LOC: WFO 17:21 → FBP 17:22 → WFO 19:30
PROVIDERS: ATTEND Obstetrics & Gynecology
DX: O13.3 Gestational [pregnancy-induced] hypertension without significant proteinuria, third trimester (principal); O99.891 Other specified diseases and conditions complicating pregnancy; R51.9 Headache, unspecified; R00.0 Tachycardia, unspecified; Z3A.34 34 weeks gestation of pregnancy
CPT/HCPCS: 36415; 59025; 80053; 82570; 84156; 85025; 93005; 99215; A9270

== ENCOUNTER 2021-08-11 05:36 | Inpatient (IN) | payer MEDICAID ==
[2021-08-11] MEDS ORDERED: SODIUM CHLORIDE FLUSH 0.9% 10 ML SYRINGE IVP PRN (06:27)
[2021-08-11] MEDS ORDERED: ONDANSETRON ODT 4 MG TABLET TL PRN (06:27)
[2021-08-11] MEDS ORDERED: SIMETHICONE CHEW 80 MG TABLET PO PRN (06:27)
[2021-08-11] MEDS ORDERED: OXYTOCIN/SODIUM CHLORIDE 500 ML IV PRN (06:27)
--- NOTE | 2021-08-11 06:59 | HISTORY & PHYSICAL EXAMINATION ---
Admit History - Smoking Status: Never smoker - Other Maternal History Other Maternal History: HPI: Patient presents today for her f/u visit at 36.5 wks. Patient states has been having a headache off and on for a couple of days states tylenol does help . Patient c/o having vaginal pressure. Pt states has been vomiting this morning ...................................................................Sinai Stevens Administrative Office Manager August 09, 2021 11:08 AM Patient is a 21 yo at 36+1 wga here for pre-op assessment for primary low transverse . Patient has been followed by this cloni for this and her of last year. Her prior delivery was complicated by a complicated shoulder dystocia requiring extensive resuscitation. Baby was eventually transferred to [place] for a week long recovery in the NICU. She has significant trauma from this delivery and requests a to avoid similar complications. She has been seen on several occasions in triage mild range blood pressures. Blood pressures have been in normal to mild range. BOSS was deemed to be unrelated to pre-eclampsia. PIH labs have been normal on several occasions. She does meet criteria for gestational hypertension with indication for delivery at 37 weeks. Today blood pressures are in normal range. Does have persistent headache. No other PIH symptoms. Endorses FM. Denies LOF or VB. Confirms desire for elective . Allergies: No Known Allergies Medications: * BREAST PUMP MISC (MISC. DEVICES) Use 1 each as directed Double electric breast pump with breast pump kit. sig: pump each breast as needed Dx: Z39.1 Lactating Mother LISA: 5 years metronidazole 0.75% gel (metronidazole) Use vaginally * PRE-MARTHA FORMULA TABS ( [id number]) Take 1 tablet by mouth once a day sertraline 25 mg tablet (sertraline) Take 2 tablet by mouth once a day OK to increase to 3 tablets by mouth daily after one week * Adult Low Dose Aspirin 81 mg tablet,delayed release (DR/EC) (aspirin) Take 1 tablet by mouth once a day docusate sodium 100 mg tablet (docusate sodium) Take 1-2 tablet by mouth twice a day as needed clindamycin phosphate 2% cream (clindamycin phosphate) Insert 1 applicatorful into vagina at bedtime Insert one applicator per vagina nightly for 6 weeks metoclopramide HCl 10 mg tablet (metoclopramide hcl) Take 1 tablet by mouth every six hours as needed Problems: Preoperative examination (ICD-V72.84) (GJT14-S32.818) Supervision high risk , unspecified trimester (ICD-V23.9) (ICD10- O09.90) labor without delivery, unspecified trimester (ICD-644.03) (ICD10- O60.00) Fatigue (ICD-780.79) (MNQ64-R69.83) Relaxation of pelvic floor (VOT16-T02.89) Depression / anxiety (ICD-300.4) (YNB16-A18.8) Supervision, normal , multiparous (ICD-V22.1) (KYT79-V15.80) Encounter for other specified screening (HGV06-A90.89) Hx of anemia (ICD-V12.3) (JPD65-P18.2) 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 Physical Constitutional: GEN: NAD HEAD: NCAT EYES: No scleral icterus or conjunctival injection CV: RRR RESP: CTAB, normal effort ABD: S&NT/ND PSYCH: appropriate affect NEURO: alert and oriented, normal gait and coordination EXT: WWP FH 37 FHT 140s Impression & Recommendations: Problem # 1: Supervision high risk , unspecified trimester (ICD-V23.9) (DAX68-O99.90) LMP:11/18/2020 NIKKO by LMP: 08/25/2021 Initial US @ 6.1 wks not consistent with LMP dating. NIKKO by initial US: 09/01/2021 Elevated BPs in mild range with BOSS persistent s/p tylenol 1000 mg and intermittent aura in peripheral vision GBS neg A+/rubella immune Genetic testing: [place] Negative having a BOY AFP 03/28/2021 NEGATIVE FAS: Marginal previa, facies not cleared. EFW 75%ile, posterior F/U US WNL placenta posterior w/o previa Glucola 103 Flu: 03/28/21 TDAP: 06/16/2021 Covid vaccine: 10/26/20 and 11/16/20 GBS @ 37.0wks- neg HSV: denies in self and partner Breast pump Rx : provided MOD: Desires elective CS prior SD pp contraception:TBD PAP: 03/03/2020- LSIL (HPV pos, 16/18 neg) post Orders: PRE OP -[id number] (CPT-[id number]) Problem # 2: Preoperative examination (ICD-V72.84) (LUE98-E42.818) Orders: PRE OP -[id number] (CPT-[id number]) Reviewed risks/benefits/alternatives to Risks include, but are not limited to, bleeding, infection, damage to neatby tissue and organs. On average, EBL of up to 1 liter is considered within normal limits for CS. Risks of blood transfusion include infection Risk of HIV 1/2million nationwide Risk of Hepatitis 1/1 million Risks of transfusion reaction Infection risk moderate given clean/contaminated nature of procedure and IV antibiotics will be given. Damage to nearby tissue and organs including bladder, bowel, ureters, blood vessels, nerves, and fetus Damage may be noted intra-op and may be delayed until after the procedure is complete Reviewed management of complications and efforts to avoid such outcomes but reviewed that they may occur despite our best efforts Confirmed that sterlization is desired Patient understands that tubal ligation is an irreversible process that will result in future infertility Written informed consent obtained. error: estimated gestational age is 36+6, with plan for delivery at 37+0 Meds/Allgy - Home Medications Home Medications: Ambulatory Orders Medication Instructions Recorded Confirmed Pnv No.95/Ferrous Fum/Folic AC 1 tab PO DAILY 02/23/21 02/23/21 [ Tablet] - Allergies Allergies/Adverse Reactions: Allergies Allergy/AdvReac Type Severity Reaction Status Date / Time No Known Drug Allergies Allergy Verified 02/23/21 11:16
[2021-08-11] MEDS ORDERED: LACTATED RINGERS 1,000 ML IV SCH ×2 (07:00→10:00)
[2021-08-11] MEDS ORDERED: MORPHINE PF 5 MG/10 ML VIAL ONE (07:17)
[2021-08-11] MEDS ORDERED: fentaNYL 100 MCG/2 ML VIAL ONE (07:17)
[2021-08-11] MEDS ORDERED: BUPIVACAINE 0.5% PF 10 ML VIAL ONE (07:19)
[2021-08-11] MEDS ORDERED: LIDOCAINE 2%-EPI 1:100000 20 ML MDV ONE (07:19)
[2021-08-11] MEDS ORDERED: PHENYLEPHRINE 10 MG/ML VIAL ONE (07:21)
[2021-08-11] MEDS ORDERED: OXYTOCIN 10 UNIT/ML VIAL ONE (07:27)
--- NOTE | 2021-08-11 07:29 | ANESTHESIA ---
Pre-Anesthesia VS, & Labs - Diagnosis NUchal cord, hx shoulder dystocia - Procedure c/s Height: 5 ft 3 in - NPO >8 hours - Is Patient ?: Yes - Lab Results Lab results reviewed: Yes Home Medications and Allergies Active Medications Acetaminophen (Acetaminophen 500 Mg Tablet) 1,000 mg PO Q8H [facility] Docusate Sodium (Docusate Sodium 100 Mg Capsule) 100 mg PO BID [facility] Oxytocin/Sodium Chloride (Pitocin/Sodium Chloride) 500 mls @ 999 mls/hr IV PRN PRN; Protocol PRN Reason: POST- HEMORR PREVENTION Lactated Ringer's (Lr) 1,000 mls @ 100 mls/hr IV .Q10H [facility] Ibuprofen (Ibuprofen 600 Mg Tablet) 600 mg PO Q6H [facility] Ketorolac Tromethamine (Ketorolac 30 Mg/Ml Vial) 30 mg IVP Q6H [facility] Stop: 08/12/21 01:01 Ondansetron HCl (Ondansetron Odt 4 Mg Tablet) 4 mg TL Q4H PRN PRN Reason: Nausea / Vomiting Oxycodone HCl (Oxycodone 5 Mg Tablet) 5 mg PO Q4HR PRN PRN Reason: PAIN Simethicone (Simethicone Chew 80 Mg Tablet) 80 mg PO TID PRN PRN Reason: Gas Sodium Chloride (Sodium Chloride Flush 0.9% 10 Ml Syringe) 10 ml IVP PRN PRN PRN Reason: NEEDED PER PROVIDER ORDERS Sodium Chloride (Sodium Chloride Flush 0.9% 10 Ml Syringe) 10 ml IVP 0100,0900,1700 [facility] Pnv No.95/Ferrous Fum/Folic AC [ Tablet] 1 tab PO DAILY 02/23/21 Allergies/Adverse Reactions: Allergies Allergy/AdvReac Type Severity Reaction Status Date / Time No Known Drug Allergies Allergy Verified 02/23/21 11:16 Anes History & Medical History - Anesthetic History Anesthesia Complications: reports: No previous complications Family history of Anesthesia Complications: Denies Family history of Malignant Hyperthermia: Denies - Medical History Cardiovascular: reports: None Pulmonary: reports: None Gastrointestinal: reports: GERD (occasional) Endocrine/Autoimmune: reports: None Smoking Status: Never smoker - Surgical History Eyes Ears Nose Throat (EENT): reports: Other Exam General: Alert, Oriented x3, Cooperative Dental: WNL Mouth Openin Fingerbreadth Neck Mobility: Normal Mallampati classification: II Thyromental Distance: 4-6 cm Respiratory: Lungs clear, Normal breath sounds, No respiratory distress Cardiovascular: Regular rate Neurological: Normal gait, Normal speech Mental/Cognitive Status: Alert/Oriented X3, Normal for patient Cognitive Status: Within normal limits Plan Anesthesia Type: Spinal Consent for Procedure(s) Verified and Reviewed: Yes Code Status: Attempt Resuscitation ASA classification: 2-Mild systemic disease Is this case an emergency?: No
[2021-08-11 08:52] LABS: BASOPHILS % (AUTO) 0.4 %; EOSINOPHILS # (AUTO) 0.1 10^3/uL (0.0-0.7); EOSINOPHILS % (AUTO) 2.4 %; HCT - HEMATOCRIT 36.2 % (37.0-47.0); HGB - HEMOGLOBIN 11.5 g/dL (12.0-16.0); LYMPHOCYTES # (AUTO) 1.5 10^3/uL (1.5-3.5); LYMPHOCYTES % (AUTO) 26.9 %; MEAN CORPUSCULAR HEMOGLOBIN 28.5 pg (27.0-31.0); MEAN CORPUSCULAR HGB CONC 31.8 g/dL (32.0-36.0); MEAN CORPUSCULAR VOLUME 89.6 fL (81.0-99.0); MEAN PLATELET VOLUME 12.4 fL (7.9-10.8); MONOCYTES # (AUTO) 0.7 10^3/uL (0.0-1.0); NEUTROPHILS # (AUTO) 3.1 10^3/uL (1.5-6.6); NEUTROPHILS % (AUTO) 57.2 %; PLT - PLATELET COUNT 132 10^3/uL (130-450); RED BLOOD COUNT 4.04 10^6/uL (4.20-5.40); RED CELL DISTRIBUTION WIDTH 13.4 % (12.0-15.0); WHITE BLOOD COUNT 5.4 x10^3/uL (4.8-10.8)
[2021-08-11] MEDS ORDERED: SODIUM CHLORIDE FLUSH 0.9% 10 ML SYRINGE IVP SCH (09:00)
[2021-08-11] MEDS ORDERED: MORPHINE 2 MG/ML CARPUJECT IVP PRN (09:02)
[2021-08-11] MEDS ORDERED: ONDANSETRON 4 MG/2 ML VIAL IVP PRN ×2 (09:02→11:07)
[2021-08-11] MEDS ORDERED: METOCLOPRAMIDE 10 MG/2 ML VIAL IVP PRN (09:02)
[2021-08-11] MEDS ORDERED: ePHEDrine 50 MG/ML VIAL IVP PRN (09:02)
[2021-08-11] MEDS ORDERED: HYDROmorphone 0.5 MG/0.5 ML SYRINGE IVP PRN (09:02)
[2021-08-11] MEDS ORDERED: fentaNYL 100 MCG/2 ML VIAL IVP PRN (09:02)
[2021-08-11] MEDS ORDERED: NALOXONE 0.4 MG/ML VIAL IVP PRN ×2 (09:02→11:07)
[2021-08-11] MEDS ORDERED: ATROPINE ABBOJECT 1 MG/10 ML SYRINGE IVP PRN (09:02)
[2021-08-11] MEDS ORDERED: METHYLERGONOVINE 0.2 MG/ML VIAL ONE (09:03)
[2021-08-11] MEDS ORDERED: CARBOPROST TROMETHAMINE 250 MCG/ML AMP IM ONE (09:03)
[2021-08-11] MEDS ORDERED: miSOPROStoL 200 MCG TABLET ONE (09:03)
[2021-08-11 09:06] LABS: ALBUMIN 2.8 g/dL (3.2-5.5); ALBUMIN/GLOBULIN RATIO 0.8 (1.0-2.2); BILIRUBIN,TOTAL 0.7 mg/dL (0.2-1.0); CALCIUM 8.4 mg/dL (8.5-10.3); CREATININE 0.5 mg/dL (0.4-1.0); POTASSIUM 3.5 mmol/L (3.5-5.0); TOTAL PROTEIN 6.2 g/dL (6.7-8.2)
[2021-08-11] MEDS ORDERED: MORPHINE PF 5 MG/10 ML VIAL IT ONE (09:08)
[2021-08-11] MEDS ORDERED: fentaNYL 100 MCG/2 ML VIAL IT ONE (09:08)
[2021-08-11] MEDS ORDERED: LIDOCAINE 2%-EPI 1:100000 20 ML MDV SUBQ ONE (10:12)
[2021-08-11] MEDS ORDERED: BUPIVACAINE 0.5% PF 30 ML VIAL INFIL ONE (10:12)
[2021-08-11] MEDS ORDERED: KETOROLAC 30 MG/ML VIAL ONE (10:39)
[2021-08-11] MEDS ORDERED: LACTATED RINGERS 800 ML IV ONE (10:52)
[2021-08-11] MEDS ORDERED: NALBUPHINE 10 MG/ML AMP IVP PRN (11:07)
[2021-08-11] MEDS ORDERED: diphenhydrAMINE INJ 50 MG/ML VIAL IVP PRN (11:43)
--- NOTE | 2021-08-11 16:24 | ANESTHESIA POST OP EVALUATION ---
Anesthesia Post Eval - Post Anesthesia Eval Vitals: Last Vital Signs Temp 37.2 C 08/11/21 11:30 Pulse 88 08/11/21 11:30 Resp 16 08/11/21 11:30 BP 129/72 08/11/21 11:30 Pulse Ox 100 08/11/21 11:30 CV Function Including HR & BP: Stable Pain Control: Satisfactory Nausea & Vomiting: Negative Mental Status: Baseline Respiratory Status: Airway Patent Hydration Status: Satisfactory Anesthesia Complications: None
[2021-08-11] MEDS: KETOROLAC 30 MG/ML VIAL IVP SCH ×2 (16:31→23:00)
--- NOTE | 2021-08-11 17:47 | OPERATIVE REPORT ---
Operative Report - General Admit Date: 08/11/21 Procedure Date: 08/11/21 Planned Procedure: Primary low transverse Pre-Op Diagnosis: IUP at 37+0 wga, GHTN, desires elective Procedure Performed: Primary low transverse Post Op Diagnosis: Same and delivery of term gestation - Procedure Note Primary Surgeon: Carla White MD Secondary Surgeon: JAYESH Lindsay CNM Anesthesia Provider: Gracy Diaz CRNA Anesthesia Technique: Spinal Pathology: Placenta for routine discard IV Fluids (mL): 1,500 Estimated Blood Loss (mL): 450 Urine Output (mL): 50 Indications: Patient is a 21 yo at 3&+0 wga here for for primary low transverse c- section. Patient has been followed by this cloni for this and her of last year. Her prior delivery was complicated by a complicated shoulder dystocia requiring extensive resuscitation. Baby was eventually transferred to [place] for a week long recovery in the NICU. She has significant trauma from this delivery and requests a to avoid similar complications. She has been seen on several occasions in triage mild range blood pressures. Blood pressures have been in normal to mild range. BOSS was deemed to be unrelated to pre-eclampsia. PIH labs have been normal on several occasions. She does meet criteria for gestational hypertension with indication for delivery at 37 weeks. Today blood pressures are in normal range. Does have persistent headache. No other PIH symptoms. Endorses FM. Denies LOF or VB. Confirms desire for elective . Findings: Male infant delivered from vertex presentation. Apgars 7/5/5 Normal appearing uterus, tubes, and ovaries Normal placenta Complications: None - Other Other Information/Narrative: Risks benefits and alternatives of the procedure were discussed. Written informed consent was obtained. Patient was taken to the operating room where spinal anesthesia was placed and found to be adequate. She was prepped and draped in the usual sterile fashion in the dorsal supine position with a leftward tilt. Chowdhury catheter was in place. SCDs were in place and activated. Cefazolin 2 g IV was given as a preoperative antibiotic. Preoperative timeout was performed. A total of 20 cc of 2% lidocaine and 0.5% bupivicaine with epinephrine was injected into the incision prior to start of the procedure. A Pfannenstiel incision was made in the skin with a scalpel and carried through the underlying layer of fascia in a combination of sharp and blunt dissection. The fascia was incised in the midline, and the incision was extended laterally with the Pardo scissors. The superior aspect of the fascial incision was grasped with the Jaden clamps, elevated, and the underlying rectus muscles were dissected off bluntly and sharply using the Pardo scissors. Attention was then turned to the inferior aspect of the incision which in a similar fashion was grasped, tented up with Jaden clamps, and the underlying rectus muscles dissected off bluntly and sharply using Pardo scissors. The rectus muscles were then in the midline. The peritoneum was identified, tented up, and entered bluntly. The peritoneal incision was extended superiorly and inferiorly with good visualization of the bladder. The bladder that blade was then inserted. A bladder flap was not created. The lower uterine segment of the uterus was identified, and incised in a transverse fashion with a scalpel. The uterus was entered bluntly. The uterine incision was extended in a craniocaudal fashion by manual stretch. The bladder blade was removed. The infant was delivered from from vertex position. Baby was wrapped in a warm sterile towel. Delayed cord clamping was performed. After one minute, the cord was clamped x2 and cut. The was handed off to the waiting pediatricians. The placenta was removed with manual expression. The uterus was NOT exteriorized. It was cleared of all clots and debris via manual swipe using Ray-Lou x2. The uterine incision was then repaired in a running locked fashion using 0 Vicryl suture. The incision was reinforced with a running imbricating layer again using 0-Vicryl suture. Excellent hemostasis was obtained. The gutters were cleared of all clots and debris. The pelvis was irrigated with warm sloppy wet lap sponges x2. The uterine defect was well visualized in normal anatomic position it was noted again to be hemostatic. The peritoneum was then reapproximated with 2-0 Vicryl in a running fashion. The rectus muscles were then reapproximated using interrupted [id number] sutures using 2-0 Chromic. Good hemostasis was noted. The fascia was then closed using 0 Vicryl in a running fashion starting from the left lateral edge to the midline. A second suture was used to close the fascia in a running fashion starting from the right lateral edge and meeting in the midline, agian using 0-Vicryl. The subcutaneous tissue was then irrigated and closed using 2-0 chromic in a running subcutaneous suture. Skin was closed in a running subcuticular suture using 4-0 Monocryl. Steri-Strips were applied to reinforce the incision and dressing was applied. Procedure was well-tolerated and without complication. Sponge lap and needle counts were correct x2. Patient was taken to recovery room in stable condition. JAYESH Lindsay CNM, assisted with retraction, delivery of the , and suturing.
[2021-08-11] MEDS: DOCUSATE SODIUM 100 MG CAPSULE PO SCH (22:59)
[2021-08-11] MEDS: ACETAMINOPHEN 500 MG TABLET PO SCH (22:59)
[2021-08-12] MEDS: KETOROLAC 30 MG/ML VIAL IVP SCH (04:56)
[2021-08-12 05:41] LABS: BASOPHILS % (AUTO) 0.3 %; EOSINOPHILS # (AUTO) 0.2 10^3/uL (0.0-0.7); EOSINOPHILS % (AUTO) 2.7 %; HCT - HEMATOCRIT 35.9 % (37.0-47.0); HGB - HEMOGLOBIN 11.4 g/dL (12.0-16.0); LYMPHOCYTES # (AUTO) 1.6 10^3/uL (1.5-3.5); LYMPHOCYTES % (AUTO) 20.9 %; MEAN CORPUSCULAR HEMOGLOBIN 28.4 pg (27.0-31.0); MEAN CORPUSCULAR HGB CONC 31.8 g/dL (32.0-36.0); MEAN CORPUSCULAR VOLUME 89.3 fL (81.0-99.0); MEAN PLATELET VOLUME 11.6 fL (7.9-10.8); MONOCYTES # (AUTO) 0.8 10^3/uL (0.0-1.0); MONOCYTES % (AUTO) 10.5 %; NEUTROPHILS % (AUTO) 65.1 %; PLT - PLATELET COUNT 130 10^3/uL (130-450); RED BLOOD COUNT 4.02 10^6/uL (4.20-5.40); RED CELL DISTRIBUTION WIDTH 13.4 % (12.0-15.0); WHITE BLOOD COUNT 7.6 x10^3/uL (4.8-10.8)
[2021-08-12] MEDS: ACETAMINOPHEN 500 MG TABLET PO SCH ×3 (07:24→23:29)
[2021-08-12] MEDS: SERTRALINE 50 MG TABLET PO SCH (08:45)
[2021-08-12] MEDS: DOCUSATE SODIUM 100 MG CAPSULE PO SCH ×2 (08:45→21:12)
[2021-08-12] MEDS: IBUPROFEN 600 MG TABLET PO SCH ×3 (10:57→22:50)
--- NOTE | 2021-08-12 12:32 | PROVIDER PROGRESS NOTE ---
Subjective - Prog Note Date Prog Note Date: 08/12/21 Prog Note Time: 12:29 - Subjective Subjective: Patient is up and ambulating, tolerating po, and voiding. Pain is well managed with pain medications. Mild lochia. BF but nipple is getting sore. Objective - Vital Signs/Intake & Output Reviewed Vital Signs: Yes Vital Signs: Vital Signs x48h Temp Pulse Resp BP Pulse Ox 08/12/21 11:50 97.9 F 88 15 125/73 100 08/12/21 07:56 97.5 F L 86 15 119/72 99 Intake & Output: Intake & Output 08/09/21 08/10/21 08/11/21 08/12/21 23:59 23:59 23:59 23:59 Intake Total 2276.667 1150 Output Total 1330 1905 Balance 946.142 -625 - Objective General Appearance: positive: No acute distress Neck: positive: Thyroid nml Respiratory: positive: No respiratory distress, Breath sounds nml Cardiovascular: positive: Regular rate & rhythm Peripheral Pulses: 2+ Radial (R), 2+ Radial (L), 2+ Dorsalis pedis (R), 2+ Dorsalis pedis (L) Abdomen: positive: Other (Soft and ND. Appropriately tender. FF below umbi. Dressing CDI) Back: positive: Nml inspection Skin: positive: Color nml Extremities: positive: Non-tender, No pedal edema Neurologic/Psychiatric: positive: Oriented x3 - Lab Results Fish Bones: 08/12/21 05:32 08/11/21 07:39 Other Labs: Lab Results x24hrs 08/12/21 Range/Units 05:32 WBC 7.6 (4.8-10.8) x10^3/uL RBC 4.02 L (4.20-5.40) 10^6/uL Hgb 11.4 L (12.0-16.0) g/dL Hct 35.9 L (37.0-47.0) % MCV 89.3 (81.0-99.0) fL MCH 28.4 (27.0-31.0) pg MCHC 31.8 L (32.0-36.0) g/dL RDW 13.4 (12.0-15.0) % Plt Count 130 (130-450) 10^3/uL MPV 11.6 H (7.9-10.8) fL Neut # (Auto) 5.0 (1.5-6.6) 10^3/uL Lymph # (Auto) 1.6 (1.5-3.5) 10^3/uL [place] # (Auto) 0.8 (0.0-1.0) 10^3/uL Eos # (Auto) 0.2 (0.0-0.7) 10^3/uL Baso # (Auto) 0.0 (0.0-0.1) 10^3/uL Absolute Nucleated RBC 0.00 x10^3/uL Nucleated RBC % 0.0 /100WBC Assessment/Plan - Problem List (1) deliv NOS-unsp Impression: POD#1: Doing well Progressing along goals for discharge Encourage ambulation Anticipate DC home tomorrow Provided instruction on appropriate latch.
[2021-08-12] MEDS: oxyCODONE 5 MG TABLET PO PRN ×3 (16:08→21:11)
[2021-08-12] MEDS ORDERED: oxyCODONE 5 MG TABLET PO ONE (16:46)
[2021-08-13] MEDS: oxyCODONE 5 MG TABLET PO PRN ×4 (01:24→13:19)
[2021-08-13] MEDS: IBUPROFEN 600 MG TABLET PO SCH ×2 (05:15→12:26)
[2021-08-13] MEDS: ACETAMINOPHEN 500 MG TABLET PO SCH (07:48)
[2021-08-13 08:13] VITALS: BP 136/76
[2021-08-13] MEDS: DOCUSATE SODIUM 100 MG CAPSULE PO SCH (09:18)
[2021-08-13] MEDS: SERTRALINE 50 MG TABLET PO SCH (09:18)
--- NOTE | 2021-08-13 12:17 | Discharge Plan ---
Discharge Plan Problem Reviewed?: Yes Disposition: Home, Self Care Condition: Good Prescriptions: Acetaminophen [Acetaminophen Extra Strength] 1,000 mg PO Q8H PRN #60 tablet PRN Reason: Pain Docusate Sodium 100Mg Capsule [Colace 100Mg Capsule] 100 - 200 mg PO BID PRN #60 cap PRN Reason: Constipation Ibuprofen [Motrin] 600 mg PO Q6H PRN #60 tab PRN Reason: Pain oxyCODONE [Roxicodone] 2.5 - 5 mg PO Q4H PRN #24 tablet PRN Reason: Severe Pain Diet: Regular Activity Restrictions: Additional Comments (see below) Shower Restrictions: Yes (No tub baths or hot tubs for 4 weeks) Driving Restrictions: Yes (No driving while taking oxycodone) Additional Instructions or Follow Up instructions: PELVIC REST: Nothing in the vagina for 6 weeks: No intercourse, tampons, douching. You are at high risk of uterine infection during this time frame. WARNING SIGNS: Call for: -Fever greater than 100.5 -Pain that does not improve with pain medication -Heavy bleeding in which you are soaking a pad an hour for 2 hours in a row -Incision becomes hot, hard, red, starts to open, or leaks foul smelling fluid -Pain or swelling in one leg and not the other +/- shortness of breath or chest pain LIFTING: No lifting more than 10# for 4 weeks DRIVING: No driving while on narcotics BATHING/WOUND CARE: Ok to shower. Let water run over the incision. Do not soap, scrub, or apply lotion. Pat dry with a clean towel or praneeth a hairmasters manager. The surgical stickers will start to peel off and you can remove them when they do. Otherwise, the provider will remove them at your one week follow-up appointment. OK to use an unscented sanitary napkin or clean washcloth to keep the incision dry if the belly folds over the incision. DISCHARGE MEDICATIONS: Ibuprofen 600 mg by mouth every 6 hours as needed for pain Acetaminophen 500-1000 mg by mouth every 8 hours as needed for pain Docusate 100-200 mg by mouth twice a day as needed for constipation Oxycodone 2.5-5 mg by mouth every 4 hours as needed for pain No Smoking: If you smoke, Please STOP! Call for help. Follow-up with: Ifeoma White MD [Provider Admit Priv/Credential] -
--- NOTE | 2021-08-13 12:18 | DISCHARGE SUMMARY ---
Discharge Summary Admit Date: 08/11/21 Discharge Date: 08/13/21 Discharging Provider: Christopher Code Status: Attempt Resuscitation Condition at Discharge: Good Discharge Disposition: 01 Home, Self Care - DIAGNOSES Admission Diagnoses: IUP at 37 wga Gestational hypertension Hx of complicated shoulder dystocia Desires elective Discharge Diagnoses with Status of Each Condition: Same and delivery of term gestation - HPI History of Present Illness: Patient is a 21 yo at 37+0 wga with complicated by gestational hypertension admitted for primary low transverse . Patient has been followed by [facility] for this and her of last year. Her prior delivery was complicated by a complicated shoulder dystocia requiring extensive resuscitation. Baby was eventually transferred to [place] for a week long recovery in the NICU. She has significant trauma from this delivery and requests a to avoid similar complications. She has been seen on several occasions in triage with mild range blood pressures. Blood pressures have been in normal to mild range. BOSS was deemed to be unrelated to pre-eclampsia. PIH labs have been normal on several occasions. She does meet criteria for gestational hypertension with indication for delivery at 37 weeks. Today blood pressures are in normal range. Does have persistent headache. No other PIH symptoms. Endorses FM. Denies LOF or VB. Confirms desire for elective . - HOSPITAL COURSE Hospital Course: Patient was admitted for the aforementioned procedure. was uncomplicated, delivering a vigorous male infant. Baby was vigorous at delivery and cord gases were not collected. decompensated after delivery. APGARS reported in OR were 7/5/5. Infant BW was 3193 g Apgars have since be recalculated and were determined to be 5/4/7. course was uncomplicated for mother and baby. By POD#2, mother and baby were meeting goals for discharge. Rh positive and rubella immune. Routine discharge i nstructions were given. - ALLERGIES Allergies/Adverse Reactions: Allergies Allergy/AdvReac Type Severity Reaction Status Date / Time No Known Drug Allergies Allergy Verified 02/23/21 11:16 - MEDICATIONS Home Medications: Ambulatory Orders Medication Instructions Recorded Confirmed Pnv No.95/Ferrous Fum/Folic AC 1 tab PO DAILY 02/23/21 02/23/21 [ Tablet] Acetaminophen [Acetaminophen Extra 1,000 mg PO Q8H PRN #60 tablet 08/12/21 Strength] Docusate Sodium 100Mg Capsule 100 - 200 mg PO BID PRN #60 cap 08/12/21 [Colace 100Mg Capsule] Ibuprofen [Motrin] 600 mg PO Q6H PRN #60 tab 08/12/21 oxyCODONE [Roxicodone] 2.5 - 5 mg PO Q4H PRN #24 tablet 08/12/21 - PHYSICAL EXAM AT DISCHARGE General Appearance: positive: No acute distress Neck: positive: Nml inspection Respiratory: positive: Chest non-tender, No respiratory distress, Breath sounds nml Cardiovascular: positive: Regular rate & rhythm Peripheral Pulses: positive: 2+ Abdomen: positive: Other (S&ND. FF below umbi. Appropriately tender. Dressing removed. Steris in place. Incision CDI. ) Back: positive: Nml inspection Skin: positive: Color nml Extremities: positive: Non-tender - LABS Result Diagrams: 08/12/21 05:32 08/11/21 07:39 - FOLLOW UP Follow Up: [address] White - TIME SPENT Time Spent in Discharge (Minutes): 30
--- NOTE | 2021-08-13 15:01 | Labor Flowsheet ---
Labor Flowsheet Datetime Report Generated by CPN: 08/13/2021 15:00 Datetime: 08/11/2021 06:04 Stage of : Antepartum VITAL SIGNS NBP Sys/Annmarie/Mean (mmHg): 116 : 66 Pulse: 96 Respirations: 16 SpO2 (%): 98 COMMUNICATION LaborFlag: Antepartum
== END 2021-08-13 14:00 | disposition home or self-care (01) | DRG 788 ==
LOC: FBP 05:36
PROVIDERS: ADMIT Obstetrics & Gynecology; ATTEND Obstetrics & Gynecology
PROC: 10D00Z1 Extraction of Products of Conception, Low, Open Approach (ICD-10-PCS; principal; 2021-08-11 07:30)
DX: O13.4 Gestational [pregnancy-induced] hypertension without significant proteinuria, complicating childbirth (principal); Z3A.37 37 weeks gestation of pregnancy; Z37.0 Single live birth; O99.52 Diseases of the respiratory system complicating childbirth; J45.909 Unspecified asthma, uncomplicated; Z79.82 Long term (current) use of aspirin; Z79.899 Other long term (current) drug therapy
CPT/HCPCS: 36415; 80053; 85025; 86850; 86900; 86901; A9270; J1200; J2274; J7040; J7120

== ENCOUNTER 2022-02-16 06:46 | Outpatient (CLI) | payer MEDICAID ==
--- NOTE | 2022-02-16 11:25 | Ultrasound Report ---
PROCEDURE: Abdomen Limited INDICATIONS: LUQ ABD PAIN TECHNIQUE: Real-time scanning was performed of the abdominal and retroperitoneal organs, with image documentatio n. COMPARISON: None. FINDINGS: Spleen: Spleen is at the upper limits of normal in size and homogeneous in echotexture. Spleen justina ures 11.9 cm in length. Kidneys: Left kidney is normal in size and echotexture. Left kidney measures 11.9 cm long; no hydrone phrosis or nephrolithiasis. No solid masses. Miscellaneous: No free abdominal fluid. IMPRESSION: Normal appearance of the spleen which measures at the upper limits of normal at 11.9 cm in length. Normal appearance of the left kidney. Reviewed by: Jean Paul Schmitt MD on 02/16/2022 11:23 AM PDT Approved by: Jean Paul Schmitt MD on 02/16/2022 11:23 AM PDT Station ID: [id number]
== END 2022-02-16 06:47 | disposition home or self-care (01) ==
LOC: DI 06:46
PROVIDERS: ATTEND Physician Assistant
DX: R10.12 Left upper quadrant pain (principal)

== ENCOUNTER 2022-03-08 08:39 | Outpatient (CLI) | payer MEDICAID ==
[2022-03-08] MEDS ORDERED: DIATRIZOATE MEGLU/DIATRIZO SOD 30 ML BOTTLE PO ONE ×2 (08:58→09:53)
--- NOTE | 2022-03-08 11:57 | CT Report ---
PROCEDURE: CT ABDOMEN With contrast INDICATIONS: LUQ ABD PAIN CONTRAST: 100 mL Isovue 350 TECHNIQUE: After the administration of oral and intravenous contrast, 5 mm thick sections acquired from the diap hragms to the iliac crests. 5 mm thick coronal and sagittal reformats were acquired. For radiation dose reduction, the following was used: automated exposure control, adjustment of mA and/or kV accor ding to patient size. COMPARISON: Limited abdominal ultrasound 02/16/2022. FINDINGS: Image quality: Excellent. Images are denoted as (series #/image #). Visualized lung bases: No pleural effusion. Liver and biliary tree: No suspect focal hepatic lesion. No biliary ductal dilation. Gallbladder: No radiopaque cholelithiasis. Spleen: Unremarkable. Pancreas: Unremarkable. Adrenal glands: Unremarkable. Kidneys and ureters: No hydronephrosis. Gastrointestinal tract: Visualized large and small bowel is non-dilated. Visualized peritoneal cavity: No free air or free fluid. Vasculature: No abdominal aortic aneurysm. Lymph nodes: No highly suspicious lymph nodes visualized. Musculoskeletal: No acute osseous abnormality. IMPRESSION: No acute abnormality identified within the abdomen. Reviewed by: Jcarlos Hollingsworth MD on 03/08/2022 11:56 AM PDT Approved by: Jcarlos Hollingsworth MD on 03/08/2022 11:56 AM PDT Station ID: [id number]
== END 2022-03-08 08:40 | disposition home or self-care (01) ==
LOC: DI 08:39
PROVIDERS: ATTEND Physician Assistant
DX: R10.12 Left upper quadrant pain (principal)
CPT/HCPCS: 74160; Q9963; Q9967